=== PATIENT | female | born 1975 | race Caucasian/White ===

== ENCOUNTER 2017-02-17 11:20 | Emergency (ER) | payer OTHER, BC ==
[2017-02-17 11:29] VITALS: BP 141/91
--- NOTE | 2017-02-17 12:00 | XRAY Preliminary Report ---
Exam: XR Elbow 3 View RT IMPRESSION: Normal elbow radiography. [facility] SITE ID: [id number]
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
[2017-02-17] MEDS ORDERED: IBUPROFEN 600 MG TABLET PO STA (12:36)
[2017-02-17] MEDS ORDERED: IBUPROFEN 400 MG TABLET PO ONE (12:43)
[2017-02-17] MEDS ORDERED: IBUPROFEN 600 MG TABLET PO ONE (12:45)
== END 2017-02-17 12:53 | disposition home or self-care (01) ==
LOC: ED 11:20
DX: S46.911A Strain of unspecified muscle, fascia and tendon at shoulder and upper arm level, right arm, initial encounter (principal); V48.5XXA Car driver injured in noncollision transport accident in traffic accident, initial encounter; Y92.488 Other paved roadways as the place of occurrence of the external cause; F17.200 Nicotine dependence, unspecified, uncomplicated
CPT/HCPCS: 73080; 99283; A9270

== ENCOUNTER 2017-08-25 15:34 | Emergency (ER) | payer BC, OTHER ==
[2017-08-25 15:47] VITALS: BP 136/90
--- NOTE | 2017-08-25 16:10 | ED Physician Documentation ---
PD HPI LOWER EXT INJURY - Stated complaint Stated Complaint: L ANKLE INJ - Chief complaint Chief Complaint: Ext Problem - History obtained from History obtained from: Patient - History of Present Illness PD HPI LOW EXT INJURY LOCATION: Left, Ankle, Foot Type of injury: Fall, Twist Where injury occurred: Home Timing - onset: How many weeks ago (1) Timing - duration: Weeks (1) Timing - details: Abrupt onset, Still present Improved by: Rest, Immobilization Worsened by: Moving, Palpating Associated symptoms: Swelling, Discolored Contributing factors: No: Anticoagulated Similar symptoms before: Has not had sx before Recently seen: Not recently seen - Additional information Additional information: 41-year-old female went to get out of bed 1 week ago and her foot was asleep she stood up and the foot twisted and fell. She has pain to the lateral aspect of the left foot and ankle she has some ecchymosis associated with it and some swelling. Over the past week she has stayed off her foot as much as possible but she continues to have pain and she feels the pain is worsening. She is worried about fracture. Review of Systems Constitutional: denies: Fever Eyes: denies: Decreased vision Nose: denies: Congestion Throat: denies: Sore throat Respiratory: denies: Cough GI: denies: Vomiting Skin: denies: Rash Musculoskeletal: reports: Extremity pain, Joint pain, Extremity swelling, Joint swelling, Pain with weight bearing. denies: Neck pain, Back pain Neurologic: denies: Generalized weakness, Focal weakness, Numbness PD PAST MEDICAL HISTORY - Past Medical History Past Medical History: Yes Respiratory: Asthma Musculoskeletal: None - Past Surgical History Past Surgical History: Yes Ortho: ACL reconstruction - Present Medications Home Medications: Ambulatory Orders Medication Instructions Recorded Confirmed Albuterol Sulfate [Ventolin Hfa] 2 puffs IH Q4H PRN #1 hfa.aer.ad 03/06/1608/25 Ibuprofen [Motrin] 600 mg PO TID #20 tab 02/17/17 08/25/17 - Allergies Allergies/Adverse Reactions: Allergies Allergy/AdvReac Type Severity Reaction Status Date / Time aspirin Allergy Respiratory Verified 08/25/17 15:47 - Social History Does the pt smoke?: Yes Smoking Status: Current every day smoker Does the pt drink ETOH?: Yes ETOH Use: Wine, Beer Does the pt have substance abuse?: No - Immunizations Immunizations are current?: Yes - POLST Patient has POLST: No PD ED PE NORMAL - Vitals Vital signs reviewed: Yes (hypertensive) - General General: Alert and oriented X 3, No acute distress, Well developed/nourished - HEENT HEENT: Atraumatic, PERRL, EOMI - Respiratory Respiratory: No respiratory distress - Derm Derm: Normal color, Warm and dry, No rash - Extremities Extremities: No deformity, No edema, Other (Swelling and ecchymosis to the lateral aspect of the left foot. The ecchymosis is consistent with the dates given by the patient. The coloring is blackened consistent with 1 week from injury. There is tenderness over the proximal fifth metatarsal anteriorly and there is tenderness over the lateral mallous) - Neuro Neuro: Alert and oriented X 3, No motor deficit, No sensory deficit, Normal speech Eye Opening: Spontaneous Motor: Obeys Commands Verbal: Oriented GCS Score: 15 - Psych Psych: Normal mood, Normal affect Results - Vitals Vitals: Vital Signs - 24 hr 08/25/17 15:44 Temperature 36.6 C Heart Rate 66 Respiratory 16 Rate Blood Pressure 136/90 H O2 Saturation 98 Oxygen O2 Source Room air - Rads (name of study) foot right Radiology: Prelim report reviewed (Impression: Normal foot radiography.), EMP read indepedently, See rad report right ankle Radiology: Prelim report reviewed (Impression: Moderate lateral and anterior ankle soft tissue swelling. No evidence for acute fracture.), EMP read indepedently, See rad report Departure - Departure Disposition: Home, Self Care Clinical Impression: Ankle sprain Qualifiers: Encounter type: initial encounter Involved ligament of ankle: calcaneofibular ligament Laterality: left Qualified Code(s): S93.412A - Sprain of calcaneofibular ligament of left ankle, initial encounter Foot sprain Qualifiers: Encounter type: initial encounter Laterality: left Qualified Code(s): S93.602A - Unspecified sprain of left foot, initial encounter Condition: Stable Instructions: ED Sprain Foot, ED Sprain Ankle W X Ray Follow-Up: [facility] [Provider Group]
--- NOTE | 2017-08-25 16:37 | XRAY Preliminary Report ---
Exam: XR ANKLE 3 VIEW LT IMPRESSION: Moderate lateral and anterior ankle soft tissue swelling. No evidence for acute fracture. [facility] SITE ID: [id number]
--- NOTE | 2017-08-25 16:37 | XRAY Report ---
EXAM: LEFT ANKLE RADIOGRAPHY EXAM DATE: 08/25/2017 04:22 PM. CLINICAL HISTORY: Twist continued pain swelling one week out. COMPARISON: None. TECHNIQUE: 3 views. FINDINGS: Bones: Normal. No fractures or bone lesions. Joints: Ankle joint effusion. No subluxation. Soft Tissues: Moderate lateral and anterior ankle soft tissue swelling. IMPRESSION: Moderate lateral and anterior ankle soft tissue swelling. No evidence for acute fracture. [facility] Referring Provider Line: [phone] SITE ID: [id number]
--- NOTE | 2017-08-25 16:38 | XRAY Preliminary Report ---
Exam: XR FOOT 3 VIEW LT IMPRESSION: Normal foot radiography. [facility] SITE ID: [id number]
--- NOTE | 2017-08-25 16:38 | XRAY Report ---
EXAM: LEFT FOOT RADIOGRAPHY EXAM DATE: 08/25/2017 04:22 PM. CLINICAL HISTORY: Twist pain over proximal 5th one week old injury. COMPARISON: None. TECHNIQUE: 3 views. FINDINGS: Bones: Normal. No fractures or bone lesions. Joints: Normal. No subluxations. Soft Tissues: Normal. No soft tissue swelling. IMPRESSION: Normal foot radiography. [facility] Referring Provider Line: [phone] SITE ID: [id number]
== END 2017-08-25 17:06 | disposition home or self-care (01) ==
LOC: ED 15:34
DX: S93.412A Sprain of calcaneofibular ligament of left ankle, initial encounter (principal); S93.602A Unspecified sprain of left foot, initial encounter; X50.1XXA Overexertion from prolonged static or awkward postures, initial encounter; Y92.003 Bedroom of unspecified non-institutional (private) residence as the place of occurrence of the external cause
CPT/HCPCS: 99283

== ENCOUNTER 2017-11-25 13:45 | Emergency (ER) | payer BC, MEDICAID, OTHER ==
[2017-11-25] MEDS ORDERED: guaiFENesin/DEXTROMETHORPHAN 10 ML UDC PO STA (14:29)
[2017-11-25] MEDS ORDERED: BENZONATATE 100 MG CAPSULE PO STA (14:29)
--- NOTE | 2017-11-25 15:09 | ED Physician Documentation ---
History of Present Illness - Stated complaint Stated Complaint: CHEST CONGESTION - Chief complaint Chief Complaint: Resp - Additonal information Additional information: hx from pt 42 female to R with sweats congestion PND and now a bad productive cough worsening since last week no travel no leg swelling denies preg Review of Systems Constitutional: reports: Sweats. denies: Fever Nose: reports: Rhinorrhea / runny nose, Congestion Respiratory: reports: Dyspnea, Cough : denies: Now EGA Musculoskeletal: denies: Extremity swelling Immunocompromised: denies: Immunocompromised PD PAST MEDICAL HISTORY - Past Medical History Respiratory: Asthma Musculoskeletal: None - Past Surgical History Past Surgical History: Yes Ortho: ACL reconstruction - Present Medications Home Medications: Ambulatory Orders Medication Instructions Recorded Confirmed Albuterol Sulfate [Proair Hfa 2 puffs INH Q4H PRN #1 inhaler 11/25/17 Inhaler] Benzonatate [Tessalon] 100 mg PO TID PRN #20 capsule 11/25/17 Fluticasone [Flonase] 1 sprays ERIC BID PRN #1 bottle 11/25/17 guaiFENesin/DEXTROMETHORPHAN 10 ml PO Q6H PRN #120 ml 11/25/17 [Robitussin Dm] - Allergies Allergies/Adverse Reactions: Allergies Allergy/AdvReac Type Severity Reaction Status Date / Time aspirin Allergy Respiratory Verified 11/25/17 13:52 - Social History Does the pt smoke?: Yes Smoking Status: Current every day smoker Does the pt drink ETOH?: Yes Does the pt have substance abuse?: No - Immunizations Immunizations are current?: Yes - POLST Patient has POLST: No PD ED PE NORMAL - Vitals Vital signs reviewed: Yes - General General: Alert and oriented X 3 - HEENT HEENT: Ears normal, Moist mucous membranes. No: Pharynx benign (erythema from coughing) - Cardiac Cardiac: RRR - Respiratory Respiratory: No respiratory distress, Other (coarse wet cough) - Abdomen Abdomen: Soft - Derm Derm: Normal color - Extremities Extremities: No edema, No calf tenderness / cord - Neuro Neuro: Alert and oriented X 3 Results - Vitals Vitals: Vital Signs - 24 hr 11/25/17 13:48 Temperature 36 C L Heart Rate 68 Respiratory 20 Rate Blood Pressure 176/86 H O2 Saturation 98 Oxygen O2 Source Room air - Rads (name of study) CXR Radiology: See rad report (neg) Departure - Departure Disposition: 01 Home, Self Care Clinical Impression: Bronchitis Condition: Good Instructions: ED Upper Resp Infec No Abx Tx Prescriptions: Albuterol Sulfate [Proair Hfa Inhaler] 2 puffs INH Q4H PRN #1 inhaler PRN Reason: Shortness Of Air/Wheezing Benzonatate [Tessalon] 100 mg PO TID PRN #20 capsule PRN Reason: to ease cough Fluticasone [Flonase] 1 sprays ERIC BID PRN #1 bottle PRN Reason: seasonal allergies guaiFENesin/DEXTROMETHORPHAN [Robitussin Dm] 10 ml PO Q6H PRN #120 ml PRN Reason: Cough Comments: The xray was fine - no pneumonia So this is likely a viral infection - or possibly seasonal allergies I have prescribed medications to ease the cough and congestion Forms: Activity restrictions
--- NOTE | 2017-11-25 15:21 | XRAY Report ---
EXAM: CHEST RADIOGRAPHY EXAM DATE: 11/25/2017 03:06 PM. CLINICAL HISTORY: Cough for one week. COMPARISON: 03/06/2016. TECHNIQUE: 2 views. FINDINGS: Lungs/Pleura: No focal opacities evident. No pleural effusion. No pneumothorax. Normal volumes. Mediastinum: Heart and mediastinal contours are unremarkable. Other: Stable mild S-shaped scoliosis. IMPRESSION: Clear lungs. [facility] Referring Provider Line: [phone] SITE ID: [id number]
[2017-11-25 15:34] VITALS: BP 145/101
== END 2017-11-25 15:57 | disposition home or self-care (01) ==
LOC: ED 13:45
DX: J40 Bronchitis, not specified as acute or chronic (principal); F17.200 Nicotine dependence, unspecified, uncomplicated
CPT/HCPCS: 71046; 99283; A9270

== ENCOUNTER 2018-03-26 16:40 | Emergency (ER) | payer MEDICAID ==
[2018-03-26] MEDS ORDERED: DEXAMETHASONE 10 MG/ML VIAL PO STA (17:37)
[2018-03-26] MEDS ORDERED: KETOROLAC 60 MG/2 ML VIAL IM STA (17:37)
--- NOTE | 2018-03-26 18:19 | ED Physician Documentation ---
PD HPI BACK PAIN - Stated complaint Stated Complaint: BK PX - Chief complaint Chief Complaint: Back Pain - History obtained from History obtained from: Patient - History of Present Illness Timing - onset: How many days ago (3) Timing - details: Still present Location: Lower, Left Quality: Pain Associated symptoms: No: Fever, Incontinent of urine Worsened by: Movement, Lifting, Twisting Contributing factors: Lifting Similar symptoms before: Has not had sx before - Additional information Additional information: The patient is a 42-year-old female who presents with low back pain that started 3 days ago. She was moving a large television downstairs when she twisted her lower back causing a strain. The pain in her lower back has continued since that time. It radiates down her left leg. She has been using ice pack, Tylenol, and ibuprofen without relief. She denies fever, urinary incontinence, numbness or weakness. She denies history of similar symptoms in the past. Review of Systems Constitutional: denies: Fever Nose: denies: Congestion Respiratory: reports: Cough (Chronic smoker's cough.). denies: Dyspnea GI: denies: Abdominal Pain, Vomiting : denies: Dysuria, Incontinent Skin: denies: Rash Musculoskeletal: reports: Back pain. denies: Neck pain Neurologic: denies: Focal weakness, Numbness, Headache PD PAST MEDICAL HISTORY - Past Medical History Respiratory: Asthma Musculoskeletal: None - Past Surgical History Past Surgical History: Yes Ortho: ACL reconstruction - Present Medications Home Medications: Ambulatory Orders Medication Instructions Recorded Confirmed Albuterol Sulfate [Proair Hfa 2 puffs INH Q4H PRN #1 inhaler 11/25/17 Inhaler] Benzonatate [Tessalon] 100 mg PO TID PRN #20 capsule 11/25/17 Fluticasone [Flonase] 1 sprays ERIC BID PRN #1 bottle 11/25/17 guaiFENesin/DEXTROMETHORPHAN 10 ml PO Q6H PRN #120 ml 11/25/17 [Robitussin Dm] Cyclobenzaprine [Flexeril] 10 mg PO TID PRN #20 tablet 03/26/18 predniSONE [Prednisone] 30 mg PO DAILY #15 tablet 03/26/18 - Allergies Allergies/Adverse Reactions: Allergies Allergy/AdvReac Type Severity Reaction Status Date / Time aspirin Allergy Respiratory Verified 03/26/18 16:46 - Social History Does the pt smoke?: Yes Smoking Status: Current every day smoker Does the pt drink ETOH?: Yes Does the pt have substance abuse?: No - Immunizations Immunizations are current?: Yes - POLST Patient has POLST: No PD ED PE NORMAL - Vitals Vital signs reviewed: Yes (Initially hypertensive.) - General General: Alert and oriented X 3, Well developed/nourished, Other (Stigmata of chronic cigarette smoking.) - HEENT HEENT: Atraumatic - Neck Neck: No adenopathy, No JVD - Cardiac Cardiac: RRR - Respiratory Respiratory: Clear bilaterally - Abdomen Abdomen: Soft, Non tender - Back Back: No CVA TTP - Derm Derm: No rash - Extremities Extremities: No edema, No calf tenderness / cord - Neuro Neuro: Alert and oriented X 3, No motor deficit, Other (Decreased light touch sensation on the lateral aspect of the left foot. Deep tendon reflexes are 2+ and equal bilaterally at the patellar and Achilles tendons.) Results - Vitals Vitals: Vital Signs - 24 hr 03/26/18 16:42 Temperature 36.4 C L Heart Rate 86 Respiratory 16 Rate Blood Pressure 156/96 H O2 Saturation 100 Oxygen O2 Source Room air PD MEDICAL DECISION MAKING - ED course Complexity details: reviewed old records, re-evaluated patient, considered differential, d/w patient ED course: Patient's presentation is most consistent with lumbar strain with left-sided radiculopathy. Her exam is significant for slight decreased light touch sensation at the lateral aspect of the left foot. There is no motor deficit detected, and normal deep tendon reflexes. Her presentation does not suggest epidural abscess, cauda equina syndrome, or spinal stenosis. Treatment in the emergency department included administration of dexamethasone 10 mg orally and ketorolac 60 mg IM. She reports slight improvement of her discomfort with this treatment. She is being discharged with prescriptions for prednisone and for Flexeril. I discussed with her the expected course of illness, symptomatic treatment and outpatient follow-up, as well as potentially worrisome signs or symptoms that should prompt reevaluation in the department. I also discussed with her the importance of smoking cessation. - Sepsis Event Vital Signs: Vital Signs - 24 hr 03/26/18 16:42 Temperature 36.4 C L Heart Rate 86 Respiratory 16 Rate Blood Pressure 156/96 H O2 Saturation 100 Oxygen O2 Source Room air Departure - Departure Disposition: 01 Home, Self Care Clinical Impression: Back pain Qualifiers: Back pain location: low back pain Chronicity: acute Back pain laterality: left Sciatica presence: with sciatica Sciatica laterality: sciatica of left side Qualified Code(s): M54.42 - Lumbago with sciatica, left side Condition: Stable Instructions: ED Low Back Pain Injury Follow-Up: Sandrita Henley ARNP [Primary Care Provider] - Prescriptions: Cyclobenzaprine [Flexeril] 10 mg PO TID PRN #20 tablet PRN Reason: Spasms predniSONE [Prednisone] 30 mg PO DAILY #15 tablet Comments: Apply ice pack to your lower back intermittently for the next 3 days. Take prednisone daily for the next 5 days as prescribed. You can use Flexeril as prescribed if needed for muscle spasms. Take ibuprofen, up to 800 mg 3 times daily if needed for pain. Let pain be your guide to activity level. Follow up with your primary physician within 1-2 weeks. Call to schedule an appointment. Return to the emergency department if you develop increasing back pain, urinary incontinence, increasing numbness or weakness, or otherwise worsening symptoms.
[2018-03-26 18:39] VITALS: BP 146/82
== END 2018-03-26 18:37 | disposition home or self-care (01) ==
LOC: ED 16:40
DX: M54.42 Lumbago with sciatica, left side (principal); F17.200 Nicotine dependence, unspecified, uncomplicated; X50.0XXA Overexertion from strenuous movement or load, initial encounter; Y93.89 Activity, other specified
CPT/HCPCS: 99283

== ENCOUNTER 2018-07-09 16:04 | Outpatient (CLI) | payer MEDICAID | END 2018-07-09 16:05 | disposition short-term general hospital (02) | LOC: EMS 16:04 | PROVIDERS: ATTEND Surgery | DX: T07.XXXA Unspecified multiple injuries, initial encounter (principal); R07.1 Chest pain on breathing; V49.40XA Driver injured in collision with unspecified motor vehicles in traffic accident, initial encounter; Y92.413 State road as the place of occurrence of the external cause | CPT/HCPCS: A0425; A0427; A0999 ==

== ENCOUNTER 2018-08-18 10:20 | Outpatient (CLI) | payer MEDICAID | END 2018-08-18 10:21 | disposition home or self-care (01) | LOC: EMS 10:20 | PROVIDERS: ATTEND Surgery | DX: M79.604 Pain in right leg (principal); S82.92XD Unspecified fracture of left lower leg, subsequent encounter for closed fracture with routine healing; S82.91XD Unspecified fracture of right lower leg, subsequent encounter for closed fracture with routine healing; S42.302D Unspecified fracture of shaft of humerus, left arm, subsequent encounter for fracture with routine healing; S42.301D Unspecified fracture of shaft of humerus, right arm, subsequent encounter for fracture with routine healing; S22.49XD Multiple fractures of ribs, unspecified side, subsequent encounter for fracture with routine healing; V43.92XD Unspecified car occupant injured in collision with other type car in traffic accident, subsequent encounter | CPT/HCPCS: A0425; A0429; A0999 ==

== ENCOUNTER 2018-08-18 10:48 | Emergency (ER) | payer MEDICAID ==
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
--- NOTE | 2018-08-18 12:38 | XRAY Report ---
Reason: prior fracture repair; fell and hurts more Procedure Date: 08/18/2018 Accession Number: [id number] / [id number] Procedure: XR - Femur 2V RT CPT Code: FULL RESULT: EXAM: RIGHT FEMUR RADIOGRAPHY EXAM DATE: 08/18/2018 12:28 PM. CLINICAL HISTORY: Prior fracture repair. Fell and hurts more. COMPARISON: None. TECHNIQUE: 2 views. FINDINGS: In absence of prior comparison radiographs to evaluate for stability of hardware positioning the following observations are made. The femoral acetabular relationship is maintained. Within the limitations of the study there is no gross subluxation of the tibiofemoral articulation. The patient is status post ORIF of comminuted distal femoral fracture secured by lateral sideplate and multiple interlocking screws as well as reconstruction of the distal femoral condyle with multiple interfragmentary screws none of which protrude past the cortex in the region of the femoral condyle and none of which are overtly fractured. The patient is also status post ACL repair, incompletely evaluated. No new fracture. IMPRESSION: Status post ORIF of comminuted distal femoral metadiaphyseal fracture with reconstruction of the distal femoral condyle. Without comparison, no overt hardware failure. RADIA
[2018-08-18] MEDS ORDERED: oxyCODONE 5 MG TABLET PO STA ×2 (14:42→18:21)
[2018-08-18] MEDS ORDERED: traMADol 50 MG TABLET PO STA (16:32)
[2018-08-18] MEDS ORDERED: METHOCARBAMOL 500 MG TABLET PO STA (16:32)
[2018-08-18] MEDS ORDERED: ACETAMINOPHEN 325 MG TABLET PO STA (18:21)
[2018-08-18 18:30] VITALS: BP 136/83
== END 2018-08-18 18:38 | disposition home or self-care (01) ==
LOC: EDUNIT# → ED 10:48
DX: S79.921A Unspecified injury of right thigh, initial encounter (principal); S89.91XA Unspecified injury of right lower leg, initial encounter; W05.0XXA Fall from non-moving wheelchair, initial encounter; Y93.89 Activity, other specified; Y92.002 Bathroom of unspecified non-institutional (private) residence as the place of occurrence of the external cause; S72.401D Unspecified fracture of lower end of right femur, subsequent encounter for closed fracture with routine healing; V89.2XXD Person injured in unspecified motor-vehicle accident, traffic, subsequent encounter; Z98.890 Other specified postprocedural states; F17.200 Nicotine dependence, unspecified, uncomplicated
CPT/HCPCS: 73552; 99283; 99284; A9270

== ENCOUNTER 2018-11-29 12:19 | Emergency (ER) | payer MEDICAID ==
[2018-11-29 12:53] LABS: BASOPHILS % (AUTO) 0.8 %; EOSINOPHILS # (AUTO) 0.2 10^3/uL (0.0-0.7); EOSINOPHILS % (AUTO) 2.6 %; HGB - HEMOGLOBIN 12.7 g/dL (12.0-16.0); LYMPHOCYTES # (AUTO) 2.1 10^3/uL (1.5-3.5); LYMPHOCYTES % (AUTO) 34.5 %; MEAN CORPUSCULAR HEMOGLOBIN 28.2 pg (27.0-31.0); MEAN CORPUSCULAR HGB CONC 33.1 g/dL (32.0-36.0); MEAN PLATELET VOLUME 7.6 fL (7.9-10.8); MONOCYTES # (AUTO) 0.3 10^3/uL (0.0-1.0); MONOCYTES % (AUTO) 5.7 %; NEUTROPHILS # (AUTO) 3.4 10^3/uL (1.5-6.6); NEUTROPHILS % (AUTO) 56.4 %; PLT - PLATELET COUNT 361 10^3/uL (130-450); RED BLOOD COUNT 4.52 10^6/uL (4.20-5.40); RED CELL DISTRIBUTION WIDTH 16.2 % (12.0-15.0); WHITE BLOOD COUNT 5.9 x10^3/uL (4.8-10.8)
--- NOTE | 2018-11-29 12:54 | ED Physician Documentation ---
History of Present Illness - Stated complaint Stated Complaint: FEMALE - Chief complaint Chief Complaint: General - History obtained from History obtained from: Patient - History of Present Illness Timing: Today Pain level max: 0 Pain level now: 0 Improved by: nothing Worsened by: nothing - Additonal information Additional information: states vaginal bleeding today. Had an with misopristol 6 weeks ago, never followed up. States multiple clots today. Review of Systems Constitutional: denies: Fever, Chills GI: denies: Vomiting Skin: denies: Rash Musculoskeletal: denies: Neck pain, Back pain Neurologic: denies: Headache PD PAST MEDICAL HISTORY - Past Medical History Past Medical History: Yes Respiratory: Asthma Musculoskeletal: None - Past Surgical History Past Surgical History: Yes Ortho: ACL reconstruction - Present Medications Home Medications: Ambulatory Orders Medication Instructions Recorded Confirmed Albuterol Sulfate [Proair Hfa 2 puffs INH Q4H PRN #1 inhaler 11/25/17 08/18/18 Inhaler] Acetaminophen 2 tab PO Q6H 08/18/18 08/18/18 Aspirin 1 tab PO DAILY 08/18/18 08/18/18 Enoxaparin [Lovenox] 30 mg SUBQ BID 08/18/18 08/18/18 Gabapentin 3 tab PO TID 08/18/18 08/18/18 Lidocaine 1 patch SQ DAILY 08/18/18 08/18/18 Melatonin 1 tab PO BIDAC PRN 08/18/18 08/18/18 Methocarbamol 2 tab PO Q6H PRN 08/18/18 08/18/18 Multivitamin [Multivitamins] 1 tab PO DAILY 08/18/18 08/18/18 Omeprazole 20 mg PO DAILY 08/18/18 08/18/18 Ondansetron [Ondansetron Odt] 1 tab PO Q8H PRN 08/18/18 08/18/18 Polyethylene Glycol 3350 [Miralax] 17 gm PO DAILY PRN 08/18/18 08/18/18 Senna [Senokot] 2 tab PO BID PRN 08/18/18 08/18/18 oxyCODONE [Roxicodone] 10 mg PO Q4H PRN 08/18/18 08/18/18 traMADol [Ultram] 25 tab PO Q6H PRN 08/18/18 08/18/18 traZODone [Desyrel] 50 tab PO DAILY PRN 08/18/18 08/18/18 - Allergies Allergies/Adverse Reactions: Allergies Allergy/AdvReac Type Severity Reaction Status Date / Time No Known Drug Allergies Allergy Verified 11/29/18 12:29 - Social History Does the pt smoke?: Yes Smoking Status: Current every day smoker Does the pt drink ETOH?: Yes Does the pt have substance abuse?: No - Immunizations Immunizations are current?: Yes - POLST Patient has POLST: No PD ED PE NORMAL - Vitals Vital signs reviewed: Yes - General General: Alert and oriented X 3, No acute distress - HEENT HEENT: Moist mucous membranes - Neck Neck: Supple, no meningeal sign - Cardiac Cardiac: RRR, Strong equal pulses - Respiratory Respiratory: No respiratory distress, Clear bilaterally - Abdomen Abdomen: Soft, Non tender, Non distended - Female Female : Pt declined - Back Back: No CVA TTP, No spinal TTP - Derm Derm: Warm and dry - Extremities Extremities: No edema - Neuro Neuro: Alert and oriented X 3 - Psych Psych: Normal mood, Normal affect Results - Vitals Vitals: Vital Signs - 24 hr 11/29/18 11/29/18 11/29/18 12:26 13:40 15:28 Temperature 37.0 C Heart Rate 85 77 77 Respiratory 18 17 17 Rate Blood Pressure 136/79 H 140/78 H 128/71 O2 Saturation 100 11/29/18 16:36 Temperature Heart Rate 77 Respiratory 16 Rate Blood Pressure 120/70 O2 Saturation Oxygen O2 Source Room air - Labs Labs: Laboratory Tests 11/29/18 11/29/18 11/29/18 12:44 12:44 12:44 WBC 5.9 RBC 4.52 Hgb 12.7 Hct 38.4 MCV 85.0 MCH 28.2 MCHC 33.1 RDW 16.2 H Plt Count 361 MPV 7.6 L Neut # (Auto) 3.4 Lymph # (Auto) 2.1 [place] # (Auto) 0.3 Eos # (Auto) 0.2 Baso # (Auto) 0.0 Absolute Nucleated RBC 0.01 Nucleated RBC % 0.1 Sodium 138 Potassium 3.5 Chloride 103 Carbon Dioxide 25 Anion Gap 10.0 BUN 9 Creatinine 0.6 Estimated GFR (MDRD) 110 Glucose 95 Calcium 8.9 Total Bilirubin 0.5 AST 18 ALT 11 Alkaline Phosphatase 80 Total Protein 7.4 Albumin 3.8 Globulin 3.6 Albumin/Globulin Ratio 1.1 Lipase 22 HCG, Quant Blood Type O POSITIVE 11/29/18 12:44 WBC RBC Hgb Hct MCV MCH MCHC RDW Plt Count MPV Neut # (Auto) Lymph # (Auto) [place] # (Auto) Eos # (Auto) Baso # (Auto) Absolute Nucleated RBC Nucleated RBC % Sodium Potassium Chloride Carbon Dioxide Anion Gap BUN Creatinine Estimated GFR (MDRD) Glucose Calcium Total Bilirubin AST ALT Alkaline Phosphatase Total Protein Albumin Globulin Albumin/Globulin Ratio Lipase HCG, Quant 13.32 Blood Type - Rads (name of study) Pelvic ultrasound Radiology: Prelim report reviewed, EMP read contemporaneously, See rad report (No evidence of ovarian torsion. Abnormally thickened and heterogeneous appearance of the endometrium with increased vascularity. Findings may represent changes from proliferative phase of the menstrual cycle or less likely uterine adenomyosis or neoplastic process. Nonspecific small complex appearing fluid collection within the endometrium, which may represent an early gestational sac or endometrial cyst. Consider correlating with serial quantitative beta hCG with short-term follow-up imaging as indicated. ) PD MEDICAL DECISION MAKING - ED course Complexity details: reviewed results, re-evaluated patient, considered differential, d/w patient, d/w family ED course: 43-year-old female presents to the emergency department with heavy vaginal bleeding Several weeks after taking misoprostol for an elective . Her hCG is down to 14. Her ultrasound has a nonspecific complex fluid collection in the endometrium. She will correlate with serial hCGs. Discussed with Dr. Soto, OB on-call who recommends follow-up in the clinic. Bleeding decreased in the emergency department. Stable vital signs. Normal hemoglobin. Patient counseled regarding signs and symptoms for which I believe and urgent re-evaluation would be necessary. Patient with good understanding of and agreeme nt to plan and is comfortable going home at this time This document was made in part using voice recognition software. While efforts are made to proofread this document, sound alike and grammatical errors may occur. Departure - Departure Disposition: 01 Home, Self Care Clinical Impression: Dysfunctional uterine bleeding Menorrhagia Qualifiers: Menorrahagia type: with irregular cycle Qualified Code(s): N92.1 - Excessive and frequent menstruation with irregular cycle Condition: Good Instructions: ED Bleed Irregular Vaginal Follow-Up: [facility] [Provider Group] - Within 3 Days Comments: Follow-up with OB next in 3 days for repeat HCG. Return if you worsen. The bleeding should decrease over the next day or 2. Discharge Date/Time: 11/29/18 16:25
[2018-11-29 13:12] LABS: ALBUMIN 3.8 g/dL (3.2-5.5); ALBUMIN/GLOBULIN RATIO 1.1 (1.0-2.2); BILIRUBIN,TOTAL 0.5 mg/dL (0.2-1.0); CALCIUM 8.9 mg/dL (8.5-10.3); CREATININE 0.6 mg/dL (0.4-1.0); TOTAL PROTEIN 7.4 g/dL (6.7-8.2)
--- NOTE | 2018-11-29 15:38 | Ultrasound Report ---
Reason: pelvic pain, bleeding, s/p misopristol 6 weeks ago Procedure Date: 11/29/2018 Accession Number: [id number] / [id number] Procedure: US - Pelvic w/Transvag+Doppler Comp CPT Code: FULL RESULT: EXAM: PELVIC ULTRASOUND EXAM DATE: 11/29/2018 02:14 PM. CLINICAL HISTORY: Lower abdominal pain. Vaginal bleeding. COMPARISON: None available. TECHNIQUE: Realtime transabdominal pelvic scan performed to identify the uterus and adnexa and as an overview of other pelvic structures, followed by transvaginal scan to provide greater detail of the uterus and adnexa, with static image documentation. FINDINGS: Uterus: 10.1 x 5.8 x 5.6 cm, volume 171.6 cc. Anteverted position. Normal overall size and echotexture. Masses: None. Endometrium: 34.1 mm. The endometrium is abnormally thickened and heterogeneous with increased vascularity. There is a complex appearing focal fluid collection within the endometrium with a mean diameter of 7 mm. No definite embryonic pole or yolk sac visualized. Cervix: Unremarkable. Right Ovary: 3.3 x 1.4 x 1.5 cm, volume 3.6 cc. Normal echotexture and blood flow. Left Ovary: 3.5 x 2.3 x 3.1 cm, volume 13.1 cc. Simple appearing dominant follicle in the left ovary measuring 2.7 x 1.7 x 2.1 cm. Free Fluid: None. Other: None. IMPRESSION: No evidence of ovarian torsion. Abnormally thickened and heterogeneous appearance of the endometrium with increased vascularity. Findings may represent changes from proliferative phase of the menstrual cycle or less likely uterine adenomyosis or neoplastic process. Nonspecific small complex appearing fluid collection within the endometrium, which may represent an early gestational sac or endometrial cyst. Consider correlating with serial quantitative beta hCG with short-term follow-up imaging as indicated. RADIA
[2018-11-29 16:40] VITALS: BP 120/70
== END 2018-11-29 16:25 | disposition home or self-care (01) ==
LOC: ED 12:19
DX: N93.8 Other specified abnormal uterine and vaginal bleeding (principal); N92.1 Excessive and frequent menstruation with irregular cycle; F17.200 Nicotine dependence, unspecified, uncomplicated
CPT/HCPCS: 36415; 76830; 76856; 80053; 83690; 84702; 85025; 86900; 86901; 93975; 99283

== ENCOUNTER 2018-12-03 08:00 | Outpatient (CLI) | payer MEDICAID | END 2018-12-03 23:59 | disposition home or self-care (01) | LOC: LAB.R 08:00 | PROVIDERS: ATTEND Obstetrics & Gynecology | DX: O02.9 Abnormal product of conception, unspecified (principal); N93.8 Other specified abnormal uterine and vaginal bleeding; Z91.89 Other specified personal risk factors, not elsewhere classified | CPT/HCPCS: 36415; 84702; 87491; 87591 ==

== ENCOUNTER 2018-12-03 11:28 | Outpatient (CLI) | payer MEDICAID | END 2018-12-03 11:29 | disposition home or self-care (01) | LOC: LAB 11:28 | PROVIDERS: ATTEND Obstetrics & Gynecology | DX: O02.9 Abnormal product of conception, unspecified (principal); N93.8 Other specified abnormal uterine and vaginal bleeding | CPT/HCPCS: 36415; 84702 ==

== ENCOUNTER 2019-01-05 23:15 | Outpatient (CLI) | payer MEDICAID | END 2019-01-05 23:16 | disposition critical access hospital (66) | LOC: EMS 23:15 | PROVIDERS: ATTEND Surgery | DX: T40.2X2A Poisoning by other opioids, intentional self-harm, initial encounter (principal); T39.312A Poisoning by propionic acid derivatives, intentional self-harm, initial encounter; R53.83 Other fatigue | CPT/HCPCS: A0425; A0427; A0999 ==

== ENCOUNTER 2019-01-05 23:40 | Emergency (ER) | payer MEDICAID ==
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
[2019-01-06 00:18] LABS: BASOPHILS % (AUTO) 0.6 %; EOSINOPHILS # (AUTO) 0.3 10^3/uL (0.0-0.7); EOSINOPHILS % (AUTO) 3.3 %; HGB - HEMOGLOBIN 13.4 g/dL (12.0-16.0); LYMPHOCYTES # (AUTO) 2.9 10^3/uL (1.5-3.5); LYMPHOCYTES % (AUTO) 37.7 %; MEAN CORPUSCULAR HEMOGLOBIN 28.6 pg (27.0-31.0); MEAN CORPUSCULAR VOLUME 86.6 fL (81.0-99.0); MEAN PLATELET VOLUME 7.5 fL (7.9-10.8); MONOCYTES # (AUTO) 0.4 10^3/uL (0.0-1.0); MONOCYTES % (AUTO) 5.5 %; NEUTROPHILS # (AUTO) 4.1 10^3/uL (1.5-6.6); NEUTROPHILS % (AUTO) 52.9 %; PLT - PLATELET COUNT 282 10^3/uL (130-450); RED BLOOD COUNT 4.69 10^6/uL (4.20-5.40); RED CELL DISTRIBUTION WIDTH 16.8 % (12.0-15.0); WHITE BLOOD COUNT 7.8 x10^3/uL (4.8-10.8)
[2019-01-06 00:34] LABS: MUDS CUTOFF CONCENTRATIONS CUTOFF CONC BELOW:
[2019-01-06 00:36] LABS: BILIRUBIN,URINE NEGATIVE (NEGATIVE); GLUCOSE, URINE (UA) NEGATIVE (NEGATIVE); KETONES,URINE (UA) NEGATIVE (NEGATIVE); LEUKOCYTE ESTERASE, URINE NEGATIVE (NEGATIVE); NITRITE,URINE NEGATIVE (NEGATIVE); OCCULT BLOOD,URINE SMALL (NEGATIVE); PROTEIN,URINE NEGATIVE (NEGATIVE); UROBILINOGEN,URINE 0.2 (NORMAL) E.U./dL (NORMAL)
[2019-01-06 00:38] LABS: CLARITY,URINE CLEAR (CLEAR)
[2019-01-06 00:39] LABS: ACETAMINOPHEN < 10 ug/mL (10-30); ALBUMIN 4.6 g/dL (3.2-5.5); ALBUMIN/GLOBULIN RATIO 1.2 (1.0-2.2); ALKALINE PHOSPHATASE 70 IU/L (42-121); ALT ALANINE AMINOTRANSFERASE 10 IU/L (10-60); AST ASPARTATE AMINOTRANSFERASE 12 IU/L (10-42); BILIRUBIN,TOTAL 0.5 mg/dL (0.2-1.0); BUN - BLOOD UREA NITROGEN 6 mg/dL (6-20); CALCIUM 8.8 mg/dL (8.5-10.3); CARBON DIOXIDE - CO2 24 mmol/L (21-32); CHLORIDE 104 mmol/L (101-111); CREATININE 0.7 mg/dL (0.4-1.0); GFR - MDRD 92 (>89); GLUCOSE 97 mg/dL (70-100); LIPASE 30 U/L (22-51); SALICYLATE < 6.0 mg/dL; SODIUM 140 mmol/L (135-145); TOTAL PROTEIN 8.3 g/dL (6.7-8.2)
[2019-01-06 00:39] LABS: HCG UR QUAL NEGATIVE
[2019-01-06 00:42] LABS: BACTERIA,URINE Rare /HPF (None Seen); RBC,URINE 0-5 /HPF (0-5); SQUAMOUS EPITHELIAL CELL,UR FEW Squamous (<= Few)
[2019-01-06 00:46] LABS: AMPHETAMINE SCREEN,URINE NEGATIVE (NEGATIVE); BENZODIAZEPINES SCREEN, URINE NEGATIVE (NEGATIVE); COCAINE SCREEN URINE NEGATIVE (NEGATIVE); METHADONE SCREEN, URINE NEGATIVE (NEGATIVE); METHAMPHETAMINES SCREEN, URINE NEGATIVE (NEGATIVE); OPIATE SCREEN, URINE NEGATIVE (NEGATIVE); OXYCODONE SCREEN, URINE POSITIVE (NEGATIVE); PROPOXYPHENE SCREEN, URINE NEGATIVE (NEGATIVE); TRICYCLIC ANTIDEPRESSANT,URINE NEGATIVE (NEGATIVE)
--- NOTE | 2019-01-06 10:37 | ED Physician Documentation ---
ED Addendum - Addendum Addendum: 01/06/19 10:36 The patient is more lucid this morning. She denies suicidal ideation this morning. We did have social work talk with the patient as well as her significant other. The feeling is that she is low risk of self-harm. She contracts for safety. The patient seems stable and safe for discharge.
[2019-01-06 11:10] VITALS: BP 118/78
== END 2019-01-06 11:24 | disposition home or self-care (01) ==
LOC: EDUNIT# → ED 23:40
DX: T40.2X2A Poisoning by other opioids, intentional self-harm, initial encounter (principal); T39.312A Poisoning by propionic acid derivatives, intentional self-harm, initial encounter; F10.920 Alcohol use, unspecified with intoxication, uncomplicated; Y90.7 Blood alcohol level of 200-239 mg/100 ml; Y92.009 Unspecified place in unspecified non-institutional (private) residence as the place of occurrence of the external cause; F32.9 Major depressive disorder, single episode, unspecified; F17.200 Nicotine dependence, unspecified, uncomplicated
CPT/HCPCS: 36415; 80053; 80306; 80307; 80320; 80329; 81001; 81003; 81025; 83690; 84443; 85025; 87086; 93005; 99284

== ENCOUNTER 2019-06-04 20:32 | Outpatient (CLI) | payer MEDICAID, OTHER | END 2019-06-04 20:33 | disposition critical access hospital (66) | LOC: EMS 20:32 | PROVIDERS: ATTEND Surgery | DX: M54.2 Cervicalgia (principal); Y04.2XXA Assault by strike against or bumped into by another person, initial encounter | CPT/HCPCS: A0425; A0429; A0999 ==

== ENCOUNTER 2019-06-04 20:52 | Inpatient (IN) | payer MEDICAID, OTHER ==
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
[2019-06-04] MEDS ORDERED: ONDANSETRON ODT 4 MG TABLET TL STA (21:22)
[2019-06-04 21:40] LABS: BASOPHILS # (AUTO) 0.1 10^3/uL (0.0-0.1); BASOPHILS % (AUTO) 0.7 %; EOSINOPHILS # (AUTO) 0.2 10^3/uL (0.0-0.7); EOSINOPHILS % (AUTO) 1.9 %; LYMPHOCYTES # (AUTO) 1.5 10^3/uL (1.5-3.5); LYMPHOCYTES % (AUTO) 15.2 %; MEAN CORPUSCULAR HEMOGLOBIN 30.4 pg (27.0-31.0); MEAN CORPUSCULAR HGB CONC 33.2 g/dL (32.0-36.0); MEAN CORPUSCULAR VOLUME 91.5 fL (81.0-99.0); MEAN PLATELET VOLUME 9.7 fL (7.9-10.8); MONOCYTES # (AUTO) 0.3 10^3/uL (0.0-1.0); MONOCYTES % (AUTO) 3.4 %; NEUTROPHILS # (AUTO) 7.9 10^3/uL (1.5-6.6); NEUTROPHILS % (AUTO) 78.4 %; PLT - PLATELET COUNT 285 10^3/uL (130-450); RED BLOOD COUNT 4.94 10^6/uL (4.20-5.40); RED CELL DISTRIBUTION WIDTH 15.8 % (12.0-15.0); WHITE BLOOD COUNT 10.1 x10^3/uL (4.8-10.8)
[2019-06-04 21:44] LABS: INR 1.3 (0.8-1.2); PT - PROTHROMBIN TIME 14.9 secs (9.9-12.6)
[2019-06-04 22:01] LABS: ALBUMIN 4.5 g/dL (3.2-5.5); ALBUMIN/GLOBULIN RATIO 1.4 (1.0-2.2); BILIRUBIN,TOTAL 0.6 mg/dL (0.2-1.0); CALCIUM 8.7 mg/dL (8.5-10.3); TOTAL PROTEIN 7.8 g/dL (6.7-8.2)
[2019-06-04 22:02] LABS: HCG,QUALITATIVE BLOOD NEGATIVE
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
[2019-06-04 22:10] LABS: CREATININE 0.7 mg/dL (0.4-1.0)
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
[2019-06-04] MEDS ORDERED: FAMOTIDINE 20 MG/2 ML VIAL IVP STA (22:14)
[2019-06-04] MEDS ORDERED: MAG HYDROX/AL HYDROX/SIMETH 30 ML UDC PO STA (22:51)
[2019-06-04] MEDS ORDERED: FAMOTIDINE 20 MG TABLET PO STA (22:51)
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
[2019-06-05 00:28] LABS: INR 1.3 (0.8-1.2); PT - PROTHROMBIN TIME 14.8 secs (9.9-12.6)
[2019-06-05 00:43] LABS: ALBUMIN 4.1 g/dL (3.2-5.5); ALBUMIN/GLOBULIN RATIO 1.2 (1.0-2.2); BILIRUBIN,TOTAL 0.3 mg/dL (0.2-1.0); CALCIUM 8.6 mg/dL (8.5-10.3); CREATININE 0.7 mg/dL (0.4-1.0); TOTAL PROTEIN 7.4 g/dL (6.7-8.2)
[2019-06-05] MEDS ORDERED: DEXTROSE 5% IV STA (00:49)
[2019-06-05] MEDS ORDERED: ACETYLCYSTEINE IV STA (00:49)
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
[2019-06-05] MEDS ORDERED: ACETYLCYSTEINE IV ONE ×3 (01:20→06:35)
[2019-06-05] MEDS ORDERED: DEXTROSE 5% IV ONE ×3 (01:20→06:35)
[2019-06-05] MEDS: ONDANSETRON 4 MG/2 ML VIAL IVP PRN (03:13)
[2019-06-05] MEDS: SODIUM CHLORIDE FLUSH 0.9% 10 ML SYRINGE IVP SCH ×3 (03:14→16:41)
[2019-06-05] MEDS: SODIUM CHLORIDE 0.9% 1,000 ML IV SCH ×2 (04:51→14:50)
[2019-06-05] MEDS: SODIUM CHLORIDE FLUSH 0.9% 10 ML SYRINGE IVP PRN ×3 (04:52→06:32)
[2019-06-05 05:29] LABS: BASOPHILS % (AUTO) 0.5 %; EOSINOPHILS # (AUTO) 0.1 10^3/uL (0.0-0.7); EOSINOPHILS % (AUTO) 1.6 %; LYMPHOCYTES # (AUTO) 1.2 10^3/uL (1.5-3.5); LYMPHOCYTES % (AUTO) 18.1 %; MEAN CORPUSCULAR HEMOGLOBIN 29.3 pg (27.0-31.0); MEAN CORPUSCULAR HGB CONC 32.4 g/dL (32.0-36.0); MEAN CORPUSCULAR VOLUME 90.3 fL (81.0-99.0); MEAN PLATELET VOLUME 9.7 fL (7.9-10.8); MONOCYTES # (AUTO) 0.2 10^3/uL (0.0-1.0); MONOCYTES % (AUTO) 2.4 %; NEUTROPHILS # (AUTO) 4.9 10^3/uL (1.5-6.6); NEUTROPHILS % (AUTO) 76.9 %; PLT - PLATELET COUNT 234 10^3/uL (130-450); RED BLOOD COUNT 4.44 10^6/uL (4.20-5.40); RED CELL DISTRIBUTION WIDTH 15.6 % (12.0-15.0); WHITE BLOOD COUNT 6.4 x10^3/uL (4.8-10.8)
[2019-06-05 06:03] LABS: ALBUMIN 3.7 g/dL (3.2-5.5); ALBUMIN/GLOBULIN RATIO 1.2 (1.0-2.2); BILIRUBIN,TOTAL 0.9 mg/dL (0.2-1.0); CALCIUM 8.2 mg/dL (8.5-10.3); CREATININE 0.5 mg/dL (0.4-1.0); TOTAL PROTEIN 6.8 g/dL (6.7-8.2)
[2019-06-05] MEDS: PANTOPRAZOLE 40 MG VIAL IVP SCH (06:31)
[2019-06-05 12:47] LABS: INR 1.4 (0.8-1.2)
[2019-06-05 18:03] LABS: ALBUMIN/GLOBULIN RATIO 1.2 (1.0-2.2); BILIRUBIN,TOTAL 1.2 mg/dL (0.2-1.0); CALCIUM 8.3 mg/dL (8.5-10.3); CREATININE 0.4 mg/dL (0.4-1.0); TOTAL PROTEIN 7.3 g/dL (6.7-8.2)
[2019-06-05] MEDS ORDERED: POTASSIUM CHLORIDE 20 MEQ TABLET PO ONE (22:09)
[2019-06-05 22:55] LABS: INR 1.4 (0.8-1.2); PT - PROTHROMBIN TIME 15.4 secs (9.9-12.6)
[2019-06-05 23:03] LABS: ALBUMIN 3.5 g/dL (3.2-5.5); ALBUMIN/GLOBULIN RATIO 1.1 (1.0-2.2); ALKALINE PHOSPHATASE 50 IU/L (42-121); ALT ALANINE AMINOTRANSFERASE 1179 IU/L (10-60); AST ASPARTATE AMINOTRANSFERASE 2414 IU/L (10-42); BUN - BLOOD UREA NITROGEN < 5 mg/dL (6-20); CALCIUM 8.2 mg/dL (8.5-10.3); CARBON DIOXIDE - CO2 21 mmol/L (21-32); CHLORIDE 105 mmol/L (101-111); CREATININE 0.5 mg/dL (0.4-1.0); GFR - MDRD 136 (>89); GLUCOSE 117 mg/dL (70-100); SODIUM 135 mmol/L (135-145); TOTAL PROTEIN 6.6 g/dL (6.7-8.2)
[2019-06-05 23:35] LABS: BASOPHILS % (AUTO) 0.7 %; EOSINOPHILS # (AUTO) 0.1 10^3/uL (0.0-0.7); EOSINOPHILS % (AUTO) 2.1 %; HGB - HEMOGLOBIN 12.6 g/dL (12.0-16.0); LYMPHOCYTES # (AUTO) 1.5 10^3/uL (1.5-3.5); LYMPHOCYTES % (AUTO) 24.1 %; MEAN CORPUSCULAR HEMOGLOBIN 30.1 pg (27.0-31.0); MEAN CORPUSCULAR HGB CONC 33.7 g/dL (32.0-36.0); MEAN CORPUSCULAR VOLUME 89.5 fL (81.0-99.0); MEAN PLATELET VOLUME 9.5 fL (7.9-10.8); MONOCYTES # (AUTO) 0.3 10^3/uL (0.0-1.0); MONOCYTES % (AUTO) 4.4 %; NEUTROPHILS # (AUTO) 4.2 10^3/uL (1.5-6.6); NEUTROPHILS % (AUTO) 68.4 %; PLT - PLATELET COUNT 197 10^3/uL (130-450); RED BLOOD COUNT 4.18 10^6/uL (4.20-5.40); RED CELL DISTRIBUTION WIDTH 15.2 % (12.0-15.0); WHITE BLOOD COUNT 6.1 x10^3/uL (4.8-10.8)
[2019-06-06] MEDS ORDERED: DEXTROSE 5% IV ONE ×2 (00:15→20:50)
[2019-06-06] MEDS ORDERED: ACETYLCYSTEINE IV ONE ×2 (00:15→20:50)
[2019-06-06] MEDS: SODIUM CHLORIDE 0.9% 1,000 ML IV SCH ×3 (00:37→19:41)
[2019-06-06] MEDS: SODIUM CHLORIDE FLUSH 0.9% 10 ML SYRINGE IVP SCH ×3 (00:38→19:35)
[2019-06-06] MEDS: ONDANSETRON 4 MG/2 ML VIAL IVP PRN (00:49)
[2019-06-06] MEDS: SODIUM CHLORIDE FLUSH 0.9% 10 ML SYRINGE IVP PRN ×3 (00:49→06:14)
[2019-06-06 05:21] LABS: BASOPHILS % (AUTO) 0.6 %; EOSINOPHILS # (AUTO) 0.2 10^3/uL (0.0-0.7); EOSINOPHILS % (AUTO) 4.2 %; HGB - HEMOGLOBIN 12.9 g/dL (12.0-16.0); LYMPHOCYTES # (AUTO) 1.3 10^3/uL (1.5-3.5); LYMPHOCYTES % (AUTO) 24.4 %; MEAN CORPUSCULAR HEMOGLOBIN 29.4 pg (27.0-31.0); MEAN CORPUSCULAR HGB CONC 32.6 g/dL (32.0-36.0); MEAN CORPUSCULAR VOLUME 90.2 fL (81.0-99.0); MEAN PLATELET VOLUME 10.1 fL (7.9-10.8); MONOCYTES # (AUTO) 0.3 10^3/uL (0.0-1.0); MONOCYTES % (AUTO) 4.8 %; NEUTROPHILS # (AUTO) 3.6 10^3/uL (1.5-6.6); NEUTROPHILS % (AUTO) 65.6 %; PLT - PLATELET COUNT 200 10^3/uL (130-450); RED BLOOD COUNT 4.39 10^6/uL (4.20-5.40); RED CELL DISTRIBUTION WIDTH 15.2 % (12.0-15.0); WHITE BLOOD COUNT 5.5 x10^3/uL (4.8-10.8)
[2019-06-06 05:26] LABS: INR 1.4 (0.8-1.2); PT - PROTHROMBIN TIME 15.7 secs (9.9-12.6)
[2019-06-06] MEDS ORDERED: POTASSIUM CHLORIDE 20 MEQ TABLET PO ONE (05:34)
[2019-06-06 05:37] LABS: ALBUMIN 3.6 g/dL (3.2-5.5); ALBUMIN/GLOBULIN RATIO 1.2 (1.0-2.2); ALKALINE PHOSPHATASE 48 IU/L (42-121); ALT ALANINE AMINOTRANSFERASE 1009 IU/L (10-60); AST ASPARTATE AMINOTRANSFERASE 1546 IU/L (10-42); BILIRUBIN,TOTAL 1.1 mg/dL (0.2-1.0); BUN - BLOOD UREA NITROGEN < 5 mg/dL (6-20); CALCIUM 8.2 mg/dL (8.5-10.3); CARBON DIOXIDE - CO2 23 mmol/L (21-32); CHLORIDE 108 mmol/L (101-111); CREATININE 0.4 mg/dL (0.4-1.0); GFR - MDRD 176 (>89); GLUCOSE 128 mg/dL (70-100); SODIUM 138 mmol/L (135-145); TOTAL PROTEIN 6.5 g/dL (6.7-8.2)
[2019-06-06] MEDS: PANTOPRAZOLE 40 MG VIAL IVP SCH (06:12)
--- NOTE | 2019-06-06 08:44 | XRAY Report ---
Reason: fever, vomiting concern for aspiration Procedure Date: 06/06/2019 Accession Number: [id number] / [id number] Procedure: XR - Chest 1 View X-Ray CPT Code: 22567 Final Report FULL RESULT: EXAM: CHEST RADIOGRAPHY EXAM DATE: 06/06/2019 08:25 AM. CLINICAL HISTORY: Fever and vomiting. COMPARISON: THORACIC SPINE 2 VIEW 06/04/2019 11:04 PM. TECHNIQUE: 1 view. FINDINGS: Lungs/Pleura: No focal opacities evident. No pleural effusion. No pneumothorax. Mediastinum: Within exam limitations, the cardiomediastinal contour is normal. Other: Internal fixation hardware partially visualized in the left humeral head. IMPRESSION: No cardiopulmonary abnormality demonstrated. RADIA
[2019-06-06 15:10] LABS: BILIRUBIN,URINE NEGATIVE (NEGATIVE); GLUCOSE, URINE (UA) NEGATIVE (NEGATIVE); KETONES,URINE (UA) NEGATIVE (NEGATIVE); LEUKOCYTE ESTERASE, URINE TRACE (NEGATIVE); NITRITE,URINE NEGATIVE (NEGATIVE); OCCULT BLOOD,URINE NEGATIVE (NEGATIVE); PROTEIN,URINE NEGATIVE (NEGATIVE); UROBILINOGEN,URINE 1 (NORMAL) E.U./dL (NORMAL)
[2019-06-06 15:13] LABS: CLARITY,URINE CLEAR (CLEAR)
[2019-06-06 15:21] LABS: RBC,URINE 0-5 /HPF (0-5)
[2019-06-06 15:22] LABS: BACTERIA,URINE Rare /HPF (None Seen); SQUAMOUS EPITHELIAL CELL,UR FEW Squamous (<= Few)
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
[2019-06-06 21:42] LABS: ALBUMIN 3.5 g/dL (3.2-5.5); ALBUMIN/GLOBULIN RATIO 1.1 (1.0-2.2); ALKALINE PHOSPHATASE 51 IU/L (42-121); ALT ALANINE AMINOTRANSFERASE 734 IU/L (10-60); AST ASPARTATE AMINOTRANSFERASE 407 IU/L (10-42); BILIRUBIN,TOTAL 0.7 mg/dL (0.2-1.0); BUN - BLOOD UREA NITROGEN < 5 mg/dL (6-20); CALCIUM 8.5 mg/dL (8.5-10.3); CARBON DIOXIDE - CO2 23 mmol/L (21-32); CHLORIDE 107 mmol/L (101-111); CREATININE 0.4 mg/dL (0.4-1.0); GFR - MDRD 176 (>89); GLUCOSE 122 mg/dL (70-100); SODIUM 138 mmol/L (135-145); TOTAL PROTEIN 6.7 g/dL (6.7-8.2)
[2019-06-07] MEDS: SODIUM CHLORIDE FLUSH 0.9% 10 ML SYRINGE IVP SCH ×3 (00:51→16:53)
[2019-06-07 05:14] LABS: BASOPHILS % (AUTO) 0.4 %; EOSINOPHILS # (AUTO) 0.5 10^3/uL (0.0-0.7); HGB - HEMOGLOBIN 12.1 g/dL (12.0-16.0); LYMPHOCYTES # (AUTO) 1.7 10^3/uL (1.5-3.5); LYMPHOCYTES % (AUTO) 29.9 %; MEAN CORPUSCULAR VOLUME 90.8 fL (81.0-99.0); MONOCYTES # (AUTO) 0.3 10^3/uL (0.0-1.0); MONOCYTES % (AUTO) 5.9 %; NEUTROPHILS # (AUTO) 3.1 10^3/uL (1.5-6.6); NEUTROPHILS % (AUTO) 55.4 %; PLT - PLATELET COUNT 199 10^3/uL (130-450); RED BLOOD COUNT 4.04 10^6/uL (4.20-5.40); RED CELL DISTRIBUTION WIDTH 15.1 % (12.0-15.0); WHITE BLOOD COUNT 5.6 x10^3/uL (4.8-10.8)
[2019-06-07 05:23] LABS: INR 1.4 (0.8-1.2); PT - PROTHROMBIN TIME 15.8 secs (9.9-12.6)
[2019-06-07 05:36] LABS: ALBUMIN 3.4 g/dL (3.2-5.5); ALBUMIN/GLOBULIN RATIO 1.1 (1.0-2.2); ALKALINE PHOSPHATASE 44 IU/L (42-121); ALT ALANINE AMINOTRANSFERASE 603 IU/L (10-60); AST ASPARTATE AMINOTRANSFERASE 221 IU/L (10-42); BILIRUBIN,TOTAL 0.7 mg/dL (0.2-1.0); BUN - BLOOD UREA NITROGEN < 5 mg/dL (6-20); CALCIUM 8.4 mg/dL (8.5-10.3); CARBON DIOXIDE - CO2 21 mmol/L (21-32); CHLORIDE 111 mmol/L (101-111); CREATININE 0.4 mg/dL (0.4-1.0); GFR - MDRD 176 (>89); GLUCOSE 116 mg/dL (70-100); SODIUM 138 mmol/L (135-145); TOTAL PROTEIN 6.5 g/dL (6.7-8.2)
[2019-06-07] MEDS: SODIUM CHLORIDE 0.9% 1,000 ML IV SCH ×2 (05:55→19:29)
[2019-06-07] MEDS: PANTOPRAZOLE 40 MG VIAL IVP SCH (05:56)
[2019-06-07] MEDS: SODIUM CHLORIDE FLUSH 0.9% 10 ML SYRINGE IVP PRN (05:56)
[2019-06-07] MEDS: POLYETHYLENE GLYCOL 3350 17 GM PACKET PO SCH (10:27)
[2019-06-07] MEDS: DOCUSATE SODIUM 250 MG CAPSULE PO SCH (10:27)
[2019-06-07] MEDS: SENNA 8.6 MG TABLET PO SCH (10:28)
[2019-06-07] MEDS ORDERED: SODIUM CHLORIDE FLUSH 0.9% 10 ML SYRINGE ONE (11:05)
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
[2019-06-07 17:17] LABS: ALBUMIN 3.8 g/dL (3.2-5.5); ALBUMIN/GLOBULIN RATIO 1.1 (1.0-2.2); BILIRUBIN,TOTAL 0.8 mg/dL (0.2-1.0); CALCIUM 8.8 mg/dL (8.5-10.3); CREATININE 0.5 mg/dL (0.4-1.0); TOTAL PROTEIN 7.3 g/dL (6.7-8.2)
[2019-06-07] MEDS ORDERED: ONDANSETRON 4 MG/2 ML VIAL IVP PRN (17:43)
[2019-06-07] MEDS: POTASSIUM CHLORIDE 20 MEQ TABLET PO SCH (20:08)
[2019-06-08] MEDS: SODIUM CHLORIDE 0.9% 1,000 ML IV SCH ×2 (04:13→06:11)
[2019-06-08] MEDS: SODIUM CHLORIDE FLUSH 0.9% 10 ML SYRINGE IVP SCH ×2 (04:16→09:13)
[2019-06-08 04:51] LABS: BASOPHILS # (AUTO) 0.1 10^3/uL (0.0-0.1); BASOPHILS % (AUTO) 0.9 %; EOSINOPHILS # (AUTO) 0.4 10^3/uL (0.0-0.7); EOSINOPHILS % (AUTO) 7.2 %; HGB - HEMOGLOBIN 12.1 g/dL (12.0-16.0); LYMPHOCYTES # (AUTO) 1.7 10^3/uL (1.5-3.5); LYMPHOCYTES % (AUTO) 31.1 %; MEAN CORPUSCULAR HEMOGLOBIN 29.2 pg (27.0-31.0); MEAN CORPUSCULAR HGB CONC 32.2 g/dL (32.0-36.0); MEAN CORPUSCULAR VOLUME 90.8 fL (81.0-99.0); MEAN PLATELET VOLUME 10.4 fL (7.9-10.8); MONOCYTES # (AUTO) 0.4 10^3/uL (0.0-1.0); MONOCYTES % (AUTO) 6.5 %; NEUTROPHILS % (AUTO) 53.9 %; PLT - PLATELET COUNT 215 10^3/uL (130-450); RED BLOOD COUNT 4.14 10^6/uL (4.20-5.40); RED CELL DISTRIBUTION WIDTH 15.2 % (12.0-15.0); WHITE BLOOD COUNT 5.6 x10^3/uL (4.8-10.8)
[2019-06-08 04:58] LABS: INR 1.2 (0.8-1.2); PT - PROTHROMBIN TIME 13.6 secs (9.9-12.6)
[2019-06-08 05:11] LABS: ALBUMIN 3.5 g/dL (3.2-5.5); ALBUMIN/GLOBULIN RATIO 1.1 (1.0-2.2); BILIRUBIN,TOTAL 0.5 mg/dL (0.2-1.0); CALCIUM 9.1 mg/dL (8.5-10.3); CREATININE 0.5 mg/dL (0.4-1.0); TOTAL PROTEIN 6.7 g/dL (6.7-8.2)
[2019-06-08 07:32] VITALS: BP 143/95
--- NOTE | 2019-06-08 08:32 | Discharge Plan ---
Discharge Plan Problem Reviewed?: Yes Disposition: Home, Self Care Condition: Stable Diet: Regular Activity Restrictions: Activity as Tolerated Shower Restrictions: No Assistance Devices: Other (as before admission) Weight Bearing: Full Weight Health Concerns: 1) Tylenol overdose After excess tylenol your liver had tylenol toxicity After a protocol specific for tylenol overdose, your liver is progressively improving with liver enzymes slowly normalizing (not at baseline yet) (AST/ALT 71/428 at discharge) NO Tylenol/Acetaminophen containing products! Look at labels carefully if you take any over the counter products to be sure there is NO acetaminophen You have follow up with your PCP on Thursday at 0920 am. (Labs should be rechecked to ensure liver enzymes continue to resolve ( 2) Suicide attempt In the hospital you were monitored one on one and had a mental health evaluation You deny that you have ongoing thoughts of self harm and also note that you have a good support system with Efrain and your PCP On discharge you are having your regular discussion with your [facility] counselor, and Myles is available for your home assistance After a phone consult with Marianne([facility]) today, -plan is you will call her once you arrive home and she will check in later today with you as well - you will speak with her weekly (rather than every 2 weeks) - You have appt with Marianne 06/09 at 12 pm 3) Depression You note that your mood on discharge despite holding duloxetine since admission is stable It was discussed that continuing the duloxetine is important for mood maintenance You wished to discuss with your Primary care Provider before resuming (you have appt with your PCP on Wednesday 06/13 920am Wellbutrin which you were on for smoking cessation was discontinued if there were any contribution to thoughts of self harm Plan of Treatment: Completed mucomyst protocol for toxic level of tylenol No Smoking: If you smoke, Please STOP! Call for help. Follow-up with: Sandrita Henley ARNP [Primary Care Provider] -
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
[2019-06-08] MEDS: POLYETHYLENE GLYCOL 3350 17 GM PACKET PO SCH (09:13)
[2019-06-08] MEDS: DOCUSATE SODIUM 250 MG CAPSULE PO SCH (09:13)
[2019-06-08] MEDS: SENNA 8.6 MG TABLET PO SCH (09:13)
[2019-06-08] MEDS: POTASSIUM CHLORIDE 20 MEQ TABLET PO SCH (09:13)
== END 2019-06-08 11:29 | disposition home or self-care (01) | DRG 918 ==
LOC: EDUNIT# → ED 20:52 → MS3 06-05 01:00 → EEVIPCON 06-05 01:00 → MS3 06-05 01:25
PROVIDERS: ADMIT Internal Medicine; ATTEND Nurse Practitioner
DX: T39.1X2A Poisoning by 4-Aminophenol derivatives, intentional self-harm, initial encounter (principal); S50.12XA Contusion of left forearm, initial encounter; S40.022A Contusion of left upper arm, initial encounter; S40.021A Contusion of right upper arm, initial encounter; W18.39XA Other fall on same level, initial encounter; Y04.2XXA Assault by strike against or bumped into by another person, initial encounter; K71.9 Toxic liver disease, unspecified; R11.2 Nausea with vomiting, unspecified; M54.6 Pain in thoracic spine; F32.9 Major depressive disorder, single episode, unspecified; S52.022D Displaced fracture of olecranon process without intraarticular extension of left ulna, subsequent encounter for closed fracture with routine healing; J45.909 Unspecified asthma, uncomplicated; R50.9 Fever, unspecified; M54.2 Cervicalgia; R51 Headache; Z87.891 Personal history of nicotine dependence; Z79.899 Other long term (current) drug therapy; Z87.81 Personal history of (healed) traumatic fracture
CPT/HCPCS: 36415; 70450; 71045; 72070; 72125; 73080; 80053; 80307; 80320; 80329; 81001; 82140; 83605; 83690; 83735; 84703; 85025; 85610; 87040; 87086; 99284; 99285; A9270; J0132; J3490; Q0162

== ENCOUNTER 2019-12-13 11:23 | Emergency (ER) | payer MEDICAID, OTHER ==
[2019-12-13 11:56] LABS: RAPID STREP SCREEN Negative (Negative)
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
[2019-12-13] MEDS ORDERED: IBUPROFEN 600 MG TABLET PO STA (12:44)
[2019-12-13] MEDS ORDERED: HYDROcod/ACETAM 5/325 MG TABLET PO STA (12:44)
[2019-12-13] MEDS ORDERED: cephALEXin 250 MG CAPSULE PO STA (12:44)
[2019-12-13 12:54] VITALS: BP 144/81
== END 2019-12-13 12:54 | disposition home or self-care (01) ==
LOC: ED 11:23
DX: H66.001 Acute suppurative otitis media without spontaneous rupture of ear drum, right ear (principal); Z87.891 Personal history of nicotine dependence
CPT/HCPCS: 87070; 87430; 99283; A9270

== ENCOUNTER 2020-04-30 16:50 | Emergency (ER) | payer MEDICAID ==
[2020-04-30] MEDS ORDERED: LIDOCAINE 1% 2 ML VIAL MC ONE (17:15)
[2020-04-30] MEDS ORDERED: cefTRIAXone 1 GM VIAL IM STA (17:15)
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
[2020-04-30 17:49] VITALS: BP 142/87
== END 2020-04-30 17:48 | disposition home or self-care (01) ==
LOC: ED 16:50
DX: K02.9 Dental caries, unspecified (principal); Z87.891 Personal history of nicotine dependence
CPT/HCPCS: 96372; 99283; 99284

== ENCOUNTER 2020-08-15 09:35 | Outpatient (CLI) | payer MEDICAID ==
[2020-08-15] MEDS ORDERED: BUFFERED LIDOCAINE 10 ML SYRINGE ONE (10:06)
[2020-08-15] MEDS ORDERED: TRIAMCINOLONE 40 MG/ML VIAL ONE (10:07)
[2020-08-15] MEDS ORDERED: ROPIVACAINE 0.5% PF 20 ML AMPULE ONE (10:08)
--- NOTE | 2020-08-15 11:18 | XRAY Report ---
PROCEDURE: Inj/Aspiration Major Joint INDICATIONS: POST TRAUMATIC OSTEOARTHRITIS CONTRAST: CONTRAST: omnipaque FLUORO TIME: FLUORO TIME: 19 sec and NUMBER IMAGES: 2 TECHNIQUE: The indications, alternatives, benefits, risks, and complications of the procedure were explained to the patient. Written informed consent was obtained and placed in the chart. The patient was placed in an appropriate position on the fluoroscopy table, and a site was chosen for percutaneous access un sandra fluoroscopic guidance. Local anesthetic was administered using a 1% lidocaine solution. A hypod ermic or spinal needle was then used to access the symptomatic joint. Intra-articular location of th e needle tip was confirmed by injecting a small amount of contrast, followed by steroid administratio n. The needle was then withdrawn, and a bandage applied to the puncture site. FINDINGS: Joint injected: Left hip joint Medications injected: 4 mL of 40 mg/mL Kenalog and 0.5% Ropivacaine mixture. Complications: None. IMPRESSION: Successful fluoroscopically guided administration of steroid and anaesthetic solution into the left h ip joint. Reviewed by: Allegra Guerrero MD on 08/15/2020 11:17 AM PST Approved by: Allegra Guerrero MD on 08/15/2020 11:17 AM PST Station ID: [id number]
[2020-08-15] MEDS ORDERED: iohexoL-240 10 ML VIAL IVP ONE (11:27)
[2020-08-15] MEDS ORDERED: BUFFERED LIDOCAINE 10 ML SYRINGE IU ONE (11:29)
[2020-08-15] MEDS ORDERED: ROPIVACAINE 0.5% PF 20 ML AMPULE EP ONE (11:31)
[2020-08-15] MEDS ORDERED: TRIAMCINOLONE 40 MG/ML VIAL IM ONE (11:32)
== END 2020-08-15 09:36 | disposition home or self-care (01) ==
LOC: DI 09:35
PROVIDERS: ATTEND Registered Nurse
DX: M16.52 Unilateral post-traumatic osteoarthritis, left hip (principal)
CPT/HCPCS: 20610; Q9966

== ENCOUNTER 2021-01-14 20:24 | Emergency (ER) | payer MEDICAID ==
[2021-01-14 20:36] VITALS: BP 143/94
[2021-01-14] MEDS ORDERED: AMOX/CLAV 875 MG/125 MG TABLET PO STA (21:16)
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
== END 2021-01-14 21:26 | disposition home or self-care (01) ==
LOC: ED 20:24
DX: K08.89 Other specified disorders of teeth and supporting structures (principal); F17.200 Nicotine dependence, unspecified, uncomplicated
CPT/HCPCS: 99282; 99284; A9270

== ENCOUNTER 2021-01-22 13:58 | Emergency (ER) | payer MEDICAID ==
[2021-01-22] MEDS ORDERED: ACETAMINOPHEN 325 MG TABLET PO STA (14:29)
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
[2021-01-22 16:28] VITALS: BP 133/71
== END 2021-01-22 16:28 | disposition home or self-care (01) ==
LOC: ED 13:58
DX: K12.1 Other forms of stomatitis (principal); F17.200 Nicotine dependence, unspecified, uncomplicated
CPT/HCPCS: 99282; A9270

== ENCOUNTER 2021-04-15 11:37 | Emergency (ER) | payer MEDICARE, MEDICAID ==
--- NOTE | 2021-04-15 12:30 | ED Physician Documentation ---
History of Present Illness - Stated complaint Stated Complaint: LT ARM INJ - Chief complaint Chief Complaint: Trauma Ext - History obtained from History obtained from: Patient - History of Present Illness Timing: Today Pain level max: 7 Pain level now: 5 - Additonal information Additional information: Patient is a 45-year-old female with a history of a left elbow fracture 2 years ago, multiple pins, screws and hardware in the joint. She states today she was cleaning when she felt a sharp pain in the posterior aspect of her elbow. Has limited range of motion of the elbow now. Worse with movement, better with rest. No numbness or tingling. Does not recall any other trauma. 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 : None HEENT: None Psych: Depression Musculoskeletal: Osteoarthritis Derm: None - Past Surgical History Past Surgical History: Yes Ortho: ACL reconstruction, Other - Present Medications Home Medications: Ambulatory Orders Medication Instructions Recorded Confirmed Fluoxetine HCl 40 mg ORAL DAILY 04/30/20 04/15/21 Omeprazole 40 mg PO DAILY 01/14/21 04/15/21 Gabapentin [Neurontin] 300 mg PO HS 04/15/21 04/15/21 HYDROcod/ACETAM 5/325 [Hyden 5/325] 1 - 2 ea PO Q6H PRN #12 tablet 04/15/21 - Allergies Allergies/Adverse Reactions: Allergies Allergy/AdvReac Type Severity Reaction Status Date / Time No Known Drug Allergies Allergy Verified 04/15/21 11:41 - Social History Does the pt smoke?: Yes Smoking Status: Current every day smoker Does the pt drink ETOH?: No Does the pt have substance abuse?: No - Immunizations Immunizations are current?: Yes - POLST Patient has POLST: No POLST Status: Full Code PD ED PE NORMAL - Vitals Vital signs reviewed: Yes - General General: Alert and oriented X 3, No acute distress - HEENT HEENT: Moist mucous membranes - Neck Neck: Supple, no meningeal sign - Derm Derm: Warm and dry - Extremities Extremities: Other (Mild tenderness to palpation over the olecranon of the left elbow. Has flexion to about 80 degrees before there is pain in the posterior aspect of the elbow. Extension to about 160 degrees. No pain with pronation and supination. No swelling. Neurovascular intact) - Neuro Neuro: Alert and oriented X 3 - Psych Psych: Normal mood, Normal affect Results - Vitals Vitals: Vital Signs - 24 hr 04/15/21 04/15/21 11:42 14:19 Temperature 36.4 C L 37.2 C Heart Rate 63 58 L Respiratory 18 12 Rate Blood Pressure 127/72 119/70 O2 Saturation 100 99 Oxygen O2 Source Room air - Rads (name of study) Left elbow x-ray Radiology: Final report received, EMP read contemporaneously, See rad report PD MEDICAL DECISION MAKING - ED course Complexity details: reviewed results, re-evaluated patient, considered differential, d/w patient ED course: No acute findings on x-ray. Likely soft tissue injury. No evidence of tendon rupture. Placed in a sling for comfort. We will continue gentle stretching at home. She has occupational therapy later this week. She will follow up with her doctor for further care. Patient counseled regarding signs and symptoms for which I believe and urgent re-evaluation would be necessary. Patient with good understanding of and agreement to plan and is comfortable going home at this time I am prescribing a short course of short-acting opioid pain medication for this patient. I have reviewed the patients PAN GREASER and no concerning findings were noted. I have discussed that the opioids are for short term therapy only, and will not be refilled from the ED. This document was made in part using voice recognition software. While efforts are made to proofread this document, sound alike and grammatical errors may occur. Departure - Departure Disposition: 01 Home, Self Care Clinical Impression: Elbow pain Qualifiers: Laterality: left Qualified Code(s): M25.522 - Pain in left elbow Condition: Good Instructions: ED Acute Pain [facility] Follow-Up: Sandrita Henley ARNP [Primary Care Provider] - Within 1 week Prescriptions: HYDROcod/ACETAM 5/325 [Hyden 5/325] 1 - 2 ea PO Q6H PRN #12 tablet PRN Reason: Pain Comments: You can wear the sling as needed for comfort. Return if you worsen. Continue to gently stretch the elbow. Do not stay in the sling longer than 2-3 days. Your xray does not show any acute abnormality. I am prescribing a short course of narcotic pain medication for you. These are potentially dangerous and addictive medications that should be used carefully. These medications may constipate you. Take an ucir-mnz-vlbdofa stool softener (docusate) twice daily with plenty of water while taking these medications. If you go 24 hours without a bowel movement, take kfyg-lwa-kjqicev miralax, per package instructions. Do not drink or drive while taking these medications. If you received narcotic or sedating medications while in the emergency department, do not drive for 24 hours. Store this medication in a safe, secure place and out of reach of children. It is a violation of federal law to give or sell this medication to another person or to use in a manner other than prescribed. The ED will not refill narcotic prescriptions, including prescriptions lost or stolen. To dispose of unwanted medications: 1. [facility] at [address] [facility] in [place] has a medication drop box. They accept prescription medications (in pill form) Thursday through Thursday 9:00 a.m. to 5:00 p.m. 2. The [facility] [employer] accepts prescription medications (in pill form only) for disposal year round. Call for more information. 3. Contact the [facility] for the next [facility] sponsored prescription drug collection event. , [phone], or [phone];
--- NOTE | 2021-04-15 12:45 | XRAY Report ---
PROCEDURE: Elbow 3 View LT INDICATIONS: L elbow pain, prior fracture TECHNIQUE: 3 views of the elbow were acquired. COMPARISON: 06/04/2019 FINDINGS: Bones: Extensive surgical hardware involving the shafts of the humerus, radius, and ulna. Surgical h ardware in these locations is intact with no evidence of hardware failure or loosening. Interval bossmna brenda of a olecranon plate at the elbow. Healed residual olecranon fracture. 3 separate screw fragments remain in the ulna at the elbow after removal of the olecranon plate. No evidence of acute fractures or dislocations. No significant degenerative change. No suspicious bony lesions. Soft tissues: No elbow joint effusion. No suspicious soft tissue calcifications. IMPRESSION: Surgical hardware from extensive previous surgeries. No acute fracture or dislocation. No evidence of significant arthritic change at the elbow. Reviewed by: Calvin Clark MD on 04/15/2021 12:44 PM PDT Approved by: Calvin Clark MD on 04/15/2021 12:44 PM PDT Station ID: [id number]
[2021-04-15] MEDS ORDERED: HYDROcod/ACETAM 5/325 MG TABLET PO STA (13:34)
[2021-04-15 14:19] VITALS: BP 119/70
== END 2021-04-15 15:15 | disposition home or self-care (01) ==
LOC: ED 11:37
DX: M25.522 Pain in left elbow (principal); F17.200 Nicotine dependence, unspecified, uncomplicated
CPT/HCPCS: 73080; 99283; A9270

== ENCOUNTER 2021-04-25 16:27 | Outpatient (CLI) | payer MEDICARE, MEDICAID | END 2021-04-25 16:28 | disposition home or self-care (01) | LOC: COV 16:27 | PROVIDERS: ATTEND Family Medicine | DX: R05 Cough (principal); M79.10 Myalgia, unspecified site; R51.9 Headache, unspecified; R53.83 Other fatigue; R68.83 Chills (without fever); R07.0 Pain in throat; Z20.822 Contact with and (suspected) exposure to COVID-19 ==

== ENCOUNTER 2021-10-14 08:59 | Outpatient (CLI) | payer MEDICARE, MEDICAID ==
--- NOTE | 2021-10-15 10:23 | Mammography Report ---
BILATERAL DIGITAL SCREENING MAMMOGRAM 3D/2D: 10/14/2021 CLINICAL: Routine screening. Baseline Exam. Family history of breast cancer. No prior exams were available for comparison. There are scattered fibroglandular elements in both br easts. There is a benign lymph node in the left breast. No significant masses, calcifications, or other findings are seen in either breast. IMPRESSION: BENIGN There is no mammographic evidence of malignancy. A 1 year screening mammogram is recommended. This exam was interpreted at Station ID: [id number]. NOTE: For mammograms, a report in lay terms will be sent to the patient. Approximately 15% of breast malignancies will not be visualized mammographically. In the management of a palpable breast mass, a negative mammogram must not discourage biopsy of a clinically suspicious lesion. Electronically Signed By: Clement [email or web address]:10/14/2021 11:00:14 ACR BI-RADS Category 2: Benign Finding(s) 3342F PARENCHYMAL PATTERN: (A) - The breast(s) demonstrate(s) scattered fibroglandular densities. BI-RADS CATEGORY: (2) - 2 RECOMMENDATION: (ANNUAL) - Recommend routine annual screening mammography. [id number] 1 year screening LATERALITY: (B)
== END 2021-10-14 09:00 | disposition home or self-care (01) ==
LOC: DI.S 08:59
PROVIDERS: ATTEND Obstetrics & Gynecology
DX: Z12.31 Encounter for screening mammogram for malignant neoplasm of breast (principal); Z80.3 Family history of malignant neoplasm of breast

== ENCOUNTER 2021-11-11 15:15 | Emergency (ER) | payer MEDICARE, MEDICAID ==
[2021-11-11 15:23] VITALS: BP 148/82
--- OUTSIDE RECORDS SUMMARY | 2021-11-11 15:35 | EXTERNAL MEDICAL SUMMARY RPT | Continuity of Care Document ---
:1975 Author Organization [facility] Address [address] [place] [address] Phone Allergies No information. Encounters No information. Medications No information. 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
--- NOTE | 2021-11-11 16:23 | ED Physician Documentation ---
History of Present Illness - Stated complaint Stated Complaint: LEFT LEG PX - Chief complaint Chief Complaint: Ext Problem - History obtained from History obtained from: Patient - History of Present Illness Pain level max: 4 Pain level now: 3 - Additonal information Additional information: 46-year-old female status post left sided total hip replacement 3 weeks ago. Developed a left calf pain yesterday. PCP sent her to the emergency department for potential DVT today.No shortness of breath. No chest pain. Worse with walking, better with rest. 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 : None HEENT: None Psych: Depression Musculoskeletal: Osteoarthritis Derm: None - Past Surgical History Past Surgical History: Yes Ortho: ACL reconstruction, Other - Present Medications Home Medications: Ambulatory Orders Medication Instructions Recorded Confirmed Fluoxetine HCl 40 mg ORAL DAILY 04/30/20 04/15/21 Omeprazole 40 mg PO DAILY 01/14/21 04/15/21 Gabapentin [Neurontin] 300 mg PO HS 04/15/21 04/15/21 HYDROcod/ACETAM 5/325 [[place]and 5/325] 1 - 2 ea PO Q6H PRN #12 tablet 04/15/21 - Allergies Allergies/Adverse Reactions: Allergies Allergy/AdvReac Type Severity Reaction Status Date / Time No Known Drug Allergies Allergy Verified 11/11/21 15:23 - Social History Does the pt smoke?: Yes Smoking Status: Current every day smoker Does the pt drink ETOH?: No Does the pt have substance abuse?: No - Immunizations Immunizations are current?: Yes - POLST Patient has POLST: No POLST Status: Full Code PD ED PE NORMAL - Vitals Vital signs reviewed: Yes - General General: Alert and oriented X 3, No acute distress, Well developed/nourished - HEENT HEENT: PERRL, Moist mucous membranes - Neck Neck: Supple, no meningeal sign - Cardiac Cardiac: RRR, Strong equal pulses - Respiratory Respiratory: No respiratory distress, Clear bilaterally - Derm Derm: Warm and dry - Extremities Extremities: No edema, Other (Mild posterior calf tenderness. No swelling. No skin changes. Neurovascular intact) - Neuro Neuro: Alert and oriented X 3 - Psych Psych: Normal mood, Normal affect Results - Vitals Vitals: Vital Signs - 24 hr 11/11/21 15:19 Temperature 36.7 C Heart Rate 77 Respiratory 16 Rate Blood Pressure 148/82 H O2 Saturation 100 Oxygen O2 Source Room air - Rads (name of study) Duplex ultrasound left lower extremity Radiology: Final report received, EMP read contemporaneously, See rad report (No DVT) PD MEDICAL DECISION MAKING - ED course Complexity details: reviewed results, re-evaluated patient, considered differential, d/w patient ED course: No acute findings on ultrasound. Likely that her calf is sore from recently starting physical therapy after her hip replacement. No evidence of infection. Patient counseled This document was made in part using voice recognition software. While efforts are made to proofread this document, sound alike and grammatical errors may occur. Departure - Departure Disposition: 01 Home, Self Care Clinical Impression: Leg pain Qualifiers: Laterality: left Qualified Code(s): M79.605 - Pain in left leg Condition: Good Instructions: ED Post Op Pain Follow-Up: Sandrita Henley ARNP [Primary Care Provider] - Within 1 week Comments: Your ultrasound is negative today. There is no DVT on your ultrasound. Please return if you worsen. Discharge Date/Time: 11/11/21 16:29
--- NOTE | 2021-11-11 16:30 | Ultrasound Report ---
PROCEDURE: Duplex Ext Veins Left INDICATIONS: L calf pain. TECHNIQUE: Real-time imaging, as well as color and pulse Doppler interrogation, were performed of the lower extr emity deep veins from the inguinal ligament to the popliteal fossa. COMPARISON: None. FINDINGS: The deep veins are normally compressible, and free of intraluminal thrombus. Color and pu lse Doppler demonstrate normal phasic intraluminal flow. There is normal augmentation response to di stal compression maneuver. IMPRESSION: No evidence of deep vein thrombosis involving the left lower extremity. Reviewed by: Anita Tobin MD, PhD on 11/11/2021 4:29 PM PDT Approved by: Anita Tobin MD, PhD on 11/11/2021 4:29 PM PDT Station ID: [id number]
== END 2021-11-11 16:29 | disposition home or self-care (01) ==
LOC: ED 15:15
DX: M79.662 Pain in left lower leg (principal); F17.200 Nicotine dependence, unspecified, uncomplicated
CPT/HCPCS: 99282; 99284

== ENCOUNTER 2022-11-15 09:32 | Emergency (ER) | payer MEDICARE, MEDICAID ==
[2022-11-15] MEDS ORDERED: LORazepam 1 MG TABLET PO STA (09:59)
[2022-11-15] MEDS ORDERED: ONDANSETRON ODT 4 MG TABLET TL STA (09:59)
--- NOTE | 2022-11-15 10:09 | ED Physician Documentation ---
History of Present Illness - Stated complaint Stated Complaint: N/V ETOH - Chief complaint Chief Complaint: General - History obtained from History obtained from: Patient, Family - Additonal information Additional information: Patient is a 47-year-old with a history of alcohol abuse presenting for evaluation of feeling withdrawal symptoms for the past 3 hours. She last had alcohol at 4 AM. She reports having nausea and vomiting and feeling shaky since 7 AM with 3 episodes of emesis. She reports yesterday drinking 3 bottles of wine and a few beers. She states that this is a normal amount for her.She reports recent stressors in her life with her significant other being out of work for several months and helping with her granddaughter. She says that things are getting better as her significant other has found a job. She is wanting help for her alcohol use. She is wanting to go to detox. She was last in a detox facility last summer and states she was able to maintain sobriety for approximately 1 month. She has a history of depression. She currently denies feeling suicidal or having suicidal thoughts. She has not recently tried to harm herself.She denies other drug use. Review of Systems Constitutional: denies: Fever Cardiac: denies: Chest pain / pressure Respiratory: denies: Dyspnea GI: reports: Nausea, Vomiting. 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 : None HEENT: None Psych: Depression Musculoskeletal: Osteoarthritis Derm: None - Past Surgical History Past Surgical History: Yes Ortho: ACL reconstruction, Other - Present Medications Home Medications: Ambulatory Orders Medication Instructions Recorded Confirmed Fluoxetine HCl 40 mg ORAL DAILY 04/30/20 04/15/21 Omeprazole 40 mg PO DAILY 01/14/21 04/15/21 Gabapentin [Neurontin] 300 mg PO HS 04/15/21 04/15/21 HYDROcod/ACETAM 5/325 [[place] 5/325] 1 - 2 ea PO Q6H PRN #12 tablet 04/15/21 Lactobacillus Combination No.4 1 each PO DAILY #14 cap 02/08/22 [Probiotic] Vancomycin [Vancocin] 125 mg PO Q6HR #40 cap 02/08/22 LORazepam [Ativan] 1 mg PO Q4HR PRN #12 tablet 11/15/22 Ondansetron Odt [Zofran] 4 mg TL Q6H PRN #10 tablet 11/15/22 - Allergies Allergies/Adverse Reactions: Allergies Allergy/AdvReac Type Severity Reaction Status Date / Time No Known Drug Allergies Allergy Verified 11/15/22 09:47 - Social History Does the pt smoke?: Yes Smoking Status: Current every day smoker Does the pt drink ETOH?: No Does the pt have substance abuse?: No - Immunizations Immunizations are current?: Yes - POLST Patient has POLST: No POLST Status: Full Code PD ED PE NORMAL - General General: Alert and oriented X 3, No acute distress, Well developed/nourished - HEENT HEENT: Atraumatic Results - Vitals Vitals: Vital Signs - 24 hr 11/15/22 11/15/22 11/15/22 09:43 10:45 12:08 Temperature 36.6 C Heart Rate 107 H 90 93 Respiratory 17 16 18 Rate Blood Pressure 150/96 H 145/89 H 145/111 H O2 Saturation 97 98 97 11/15/22 12:25 Temperature Heart Rate 106 H Respiratory 18 Rate Blood Pressure 143/89 H O2 Saturation 100 Oxygen O2 Source Room air - Labs Labs: Laboratory Tests 11/15/22 11/15/22 11/15/22 10:08 10:08 10:45 WBC 7.5 RBC 5.24 Hgb 13.7 Hct 42.1 MCV 80.3 L MCH 26.1 L MCHC 32.5 RDW 21.2 H Plt Count 355 MPV 9.1 Neut # (Auto) 5.0 Lymph # (Auto) 2.0 [place] # (Auto) 0.3 Eos # (Auto) 0.1 Baso # (Auto) 0.1 Absolute Nucleated RBC 0.00 Nucleated RBC % 0.0 Manual Slide Review Indicated Platelet Estimate NORMAL (130-450,000) Platelet Morphology NORMAL APPEARANCE RBC Morph Micro Appear 2+ ANISOCYTOSIS Sodium 138 Potassium 3.1 L Chloride 104 Carbon Dioxide 22 Anion Gap 12.0 BUN 8 Creatinine 0.6 Estimated GFR (MDRD) 108 Glucose 122 H Calcium 8.1 L Total Bilirubin 0.4 AST 34 ALT 35 Alkaline Phosphatase 57 Total Protein 8.2 Albumin 4.5 Globulin 3.7 Albumin/Globulin Ratio 1.2 Lipase 35 Urine Color YELLOW Urine Clarity HAZY Urine pH 6.5 Ur Specific [place] 1.025 Urine Protein 100 H Urine Glucose (UA) NEGATIVE Urine Ketones TRACE Urine Occult Blood SMALL H Urine Nitrite NEGATIVE Urine Bilirubin NEGATIVE Urine Urobilinogen 0.2 (NORMAL) Ur Leukocyte Esterase TRACE H Urine RBC 6-10 H Urine WBC 6-10 H Ur Squamous Epith Cells MANY Squamous H Urine Bacteria Few Urine Mucus Moderate Strands Ur Microscopic Review INDICATED Urine Culture Comments NOT INDICATED Urine HCG, Qual NEGATIVE Ethyl Alcohol 228.1 PD Medical Decision Making - ED course Complexity details: reviewed results, re-evaluated patient, d/w patient ED course: Patient is a 47-year-old female presenting for evaluation of alcohol withdrawal symptoms. She is wanting to quit. She reports having nausea and vomiting. Her CIWA is lower. She is feeling better after oral Ativan and Zofran.CBC and chemistries were reviewed. Potassium was slightly low at 3.2 and replaced p.o. which patient tolerated well.Although her alcohol level is elevated here she is clinically sober and that she is speaking clearly and able to ambulate steadily.She was given resources for Detox facilities. [facility] is currently full but she has also reached out to other facilities.She feels comfortable managing her symptoms at home. She denies a history of DTs or alcohol withdrawal seizures.She is not suicidal.She was counseled to not take Ativan if she plans on drinking. She was also counseled on concerning symptoms to return for. Departure - Departure Disposition: 01 Home, Self Care Clinical Impression: Alcohol withdrawal, Hypokalemia Condition: Stable Instructions: ED Withdrawal Alcohol Prescriptions: LORazepam [Ativan] 1 mg PO Q4HR PRN #12 tablet PRN Reason: Alcohol Withdrawal Ondansetron Odt [Zofran] 4 mg TL Q6H PRN #10 tablet PRN Reason: Nausea / Vomiting Comments: Please continue to reach out to detox facilities in order to get help for your alcohol withdrawal. I have sent a few prescriptions to help you with your withdrawal symptoms including antinausea medicine called Zofran and Ativan. Please do not consume alcohol if you are using the Ativan as this can be dangerous and cause you to be overly sedated. If you develop any worsening symptoms please return to the ER. Your prescriptions were sent to [facility] in [place]. [facility] [address] [place] [address] Main The [facility] offers a monitored and safe setting for individuals withdrawing from alcohol and drugs, and counseling for individuals experiencing a mental health crisis. All services are provided in a 10-bed facility where intensive medical monitoring is required along with stabilization services. The goal of these services is to assess a clients mental health and substance use disorder related needs, and assist them in accessing the services they need to recover. Discharge Date/Time: 11/15/22 12:25
[2022-11-15 10:14] LABS: BASOPHILS # (AUTO) 0.1 10^3/uL (0.0-0.1); BASOPHILS % (AUTO) 0.8 %; EOSINOPHILS # (AUTO) 0.1 10^3/uL (0.0-0.7); EOSINOPHILS % (AUTO) 1.7 %; HCT - HEMATOCRIT 42.1 % (37.0-47.0); HGB - HEMOGLOBIN 13.7 g/dL (12.0-16.0); LYMPHOCYTES % (AUTO) 26.8 %; MEAN CORPUSCULAR HEMOGLOBIN 26.1 pg (27.0-31.0); MEAN CORPUSCULAR HGB CONC 32.5 g/dL (32.0-36.0); MEAN CORPUSCULAR VOLUME 80.3 fL (81.0-99.0); MEAN PLATELET VOLUME 9.1 fL (7.9-10.8); MONOCYTES # (AUTO) 0.3 10^3/uL (0.0-1.0); MONOCYTES % (AUTO) 4.3 %; NEUTROPHILS % (AUTO) 66.1 %; PLT - PLATELET COUNT 355 10^3/uL (130-450); RED BLOOD COUNT 5.24 10^6/uL (4.20-5.40); RED CELL DISTRIBUTION WIDTH 21.2 % (12.0-15.0); WHITE BLOOD COUNT 7.5 x10^3/uL (4.8-10.8)
[2022-11-15 10:19] LABS: SLIDE REVIEW? Indicated
[2022-11-15 10:26] LABS: ALBUMIN 4.5 g/dL (3.2-5.5); ALBUMIN/GLOBULIN RATIO 1.2 (1.0-2.2); BILIRUBIN,TOTAL 0.4 mg/dL (0.2-1.0); CALCIUM 8.1 mg/dL (8.5-10.3); CREATININE 0.6 mg/dL (0.4-1.0); ETOH - ETHANOL 228.1 mg/dL; POTASSIUM 3.1 mmol/L (3.5-5.0); TOTAL PROTEIN 8.2 g/dL (6.7-8.2)
[2022-11-15 10:28] LABS: PLATELET ESTIMATE, MANUAL NORMAL (130-450,000) (NORMAL); PLATELET MORPHOLOGY NORMAL APPEARANCE (NORMAL); RBC MORPHOLOGY (MULTIPLE) 2+ ANISOCYTOSIS (NORMAL)
[2022-11-15] MEDS ORDERED: POTASSIUM CHLORIDE 20 MEQ TABLET PO STA (10:31)
[2022-11-15 10:53] LABS: BILIRUBIN,URINE NEGATIVE (NEGATIVE); GLUCOSE, URINE (UA) NEGATIVE (NEGATIVE); KETONES,URINE (UA) TRACE mg/dL (NEGATIVE); LEUKOCYTE ESTERASE, URINE TRACE (NEGATIVE); NITRITE,URINE NEGATIVE (NEGATIVE); OCCULT BLOOD,URINE SMALL (NEGATIVE); PH,URINE 6.5 PH (5.0-7.5); PROTEIN,URINE 100 mg/dL (NEGATIVE); UROBILINOGEN,URINE 0.2 (NORMAL) E.U./dL (NORMAL)
[2022-11-15 11:07] LABS: BACTERIA,URINE Few /HPF (None Seen); CLARITY,URINE HAZY (CLEAR); HCG UR QUAL NEGATIVE; SQUAMOUS EPITHELIAL CELL,UR MANY Squamous (<= Few)
[2022-11-15 11:08] LABS: MUCUS,URINE Moderate Strands
[2022-11-15 12:25] VITALS: BP 143/89
== END 2022-11-15 12:25 | disposition home or self-care (01) ==
LOC: ED 09:32
DX: F10.239 Alcohol dependence with withdrawal, unspecified (principal); Y90.7 Blood alcohol level of 200-239 mg/100 ml; E87.6 Hypokalemia; F17.210 Nicotine dependence, cigarettes, uncomplicated; Z79.899 Other long term (current) drug therapy
CPT/HCPCS: 36415; 80053; 81001; 81025; 83690; 85025; 99283; 99284; A9270; G0480; J8499; Q0162; 80320; 81003; 87086

== ENCOUNTER 2022-11-27 08:00 | Outpatient (CLI) | payer MEDICARE, MEDICAID | END 2022-11-27 23:59 | disposition home or self-care (01) | LOC: LAB.WC 08:00 | PROVIDERS: ATTEND Nurse Practitioner | DX: Z32.00 Encounter for pregnancy test, result unknown (principal) ==

== ENCOUNTER 2023-01-06 10:57 | Emergency (ER) | payer MEDICARE, MEDICAID ==
[2023-01-06 11:08] VITALS: BP 146/97
--- NOTE | 2023-01-06 11:22 | ED Physician Documentation ---
History of Present Illness - Stated complaint Stated Complaint: LT FOOT PX, SWELLING - Chief complaint Chief Complaint: Trauma Ext - Additonal information Additional information: 47-year-old female presents emergency department for evaluation of distal left lateral foot pain sustained after tripping at home and catching her foot in the doorway. She does have a history of previous crush injury and fracture to this foot about 5 years ago that required multiple operations as well as pinning and hardware within the foot. She does walk with a cane at baseline due to a history of left hip replacement. Patient did drive herself to the hospital and took 800 Motrin prior to arrival which she reports took the edge off. 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 HEENT: None Psych: Depression Musculoskeletal: Osteoarthritis Derm: None - Past Surgical History Past Surgical History: Yes Ortho: ACL reconstruction, Other - Present Medications Home Medications: Ambulatory Orders Medication Instructions Recorded Confirmed Fluoxetine HCl 40 mg ORAL DAILY 04/30/20 04/15/21 Omeprazole 40 mg PO DAILY 01/14/21 04/15/21 Gabapentin [Neurontin] 300 mg PO HS 04/15/21 04/15/21 HYDROcod/ACETAM 5/325 [[place] 5/325] 1 - 2 ea PO Q6H PRN #12 tablet 04/15/21 Lactobacillus Combination No.4 1 each PO DAILY #14 cap 02/08/22 [Probiotic] Vancomycin [Vancocin] 125 mg PO Q6HR #40 cap 02/08/22 LORazepam [Ativan] 1 mg PO Q4HR PRN #12 tablet 11/15/22 Ondansetron Odt [Zofran] 4 mg TL Q6H PRN #10 tablet 11/15/22 - Allergies Allergies/Adverse Reactions: Allergies Allergy/AdvReac Type Severity Reaction Status Date / Time No Known Drug Allergies Allergy Verified 01/06/23 11:07 - Social History Does the pt smoke?: Yes Smoking Status: Current every day smoker Does the pt drink ETOH?: No Does the pt have substance abuse?: No - Immunizations Immunizations are current?: Yes - POLST Patient has POLST: No POLST Status: Full Code PD ED PE EXPANDED - General General: Alert, No acute distress - Extremities Extremities: Left foot (Mild swelling and tenderness without ecchymosis dorsum of the left foot laterally most prominent over the MCP joint of the fourth and fifth toes. Multiple scars on the foot and ankle all well-healed. No obvious deformity. Neurovascularly intact. 2+ DP pulse.) Results - Vitals Vitals: Vital Signs - 24 hr 01/06/23 11:04 Temperature 36.0 C L Heart Rate 84 Respiratory 20 Rate Blood Pressure 146/97 H O2 Saturation 99 Oxygen O2 Source Room air - Rads (name of study) left foot Relevant Findings:: EMP independent interpretation of test (Left proximal phalanx fracture) PD Medical Decision Making - ED course Complexity details: reviewed results, re-evaluated patient, considered differential, d/w patient ED course: 47-year-old female presents emergency department for evaluation of acute left Small toe pain after tripping at home and jamming her foot in the doorway. My interpretation of the x-ray is that there is a left proximal phalanx fracture however I do not see any other associated fracture on x-ray of the foot. The patient does have a previous history of extensive injury to this foot including a crush injury about 5 years ago. Patient was norris taped at the bedside and given hard postop shoe. She is advised Tylenol and Motrin for analgesia at home. She will follow closely with PCP. Recommended continued follow-up with orthopedics. Otherwise usual emergent return precautions were discussed Departure - Departure Disposition: 01 Home, Self Care Clinical Impression: Fracture of proximal phalanx of toe of left foot Condition: Stable Record reviewed to determine appropriate education?: Yes Instructions: ED Fx Toe Closed Comments: Mirian The x-ray of the foot does confirm a proximal phalanx fracture of your small toe. Typically these are managed nonoperatively simply by norris taping your toe to the adjacent toe. It would likely take about 6 weeks for this to fully heal perhaps a little longer as you do have some mild osteopenia which is thinning of the bones. I encourage you to wear the hard soled shoe when out of bed. In general I would recommend Tylenol and ibuprofen [id number] for foot discomfort. With your previous history of injury and fracture to this foot I recommend you follow closely with your previous provider. Return to the ER if you find you are having worsening symptoms.
--- OUTSIDE RECORDS SUMMARY | 2023-01-06 11:33 | EXTERNAL MEDICAL SUMMARY RPT | Continuity of Care Document ---
Author Name Unknown Address [address] [place] [address] Phone Organization [facility] Address [address] [place] [address] Phone Problems date description facility 2022-12-19 08:13 Radiculopathy, lumbar region Is [facility] Results/Labs test date author facility value unit interpretation Result panel 1 (unknown) (no date) (unknown) (unknown) (no value) (units unknown) (unknown) (unknown) (no date) (unknown) (unknown) 12/19/22 (units unknown) (unknown) (unknown) (no date) (unknown) (unknown) 1. No extrinsi c compression or significant abnormality is seen along the course (units unknown) (unknown) (unknown) (no date) (unknown) (unknown) [address] [place] [address] (un its unknown) (unknown) (unknown) (no date) (unknown) (unknown) 2. Mild asymme tric atrophy and grade 2 fatty infiltration of the left piriformis (units unknown) (unknown) (unknown) (no date) (unknown) (unknown) [id number] (units unknown) (unknown) (unknown) (no date) (unknown) (unknown) 3. Mild focal osseous edema in the left hemisacrum adjacent to the sacroiliac (units unknown) (unknown) (unknown) (no date) (unknown) (unknown) 12/11/2022, 13:13. (u nits unknown) (unknown) (unknown) (no date) (unknown) (unknown) 12/11/2022, 13:21. (u nits unknown) (unknown) (unknown) (no date) (unknown) (unknown) Accession Numb er: [id number] (units unknown) (unknown) (unknown) (no date) (unknown) (unknown) Accession Numb er: [id number] (units unknown) (unknown) (unknown) (no date) (unknown) (unknown) Age/Sex: 47 / F Date of Service: (units unknown) (unknown) (unknown) (no date) (unknown) (unknown) Alignment and Curvature: There is normal bony alignment. (units unknown) (unknown) (unknown) (no date) (unknown) (unknown) [place] [address] (units unknown) (unknown) (unknown) (no date) (unknown) (unknown) Approved by: Weston Carvajal M.D. on 12/19/2022 at 12:43 (units unknown) (unknown) (unknown) (no date) (unknown) (unknown) Approved by: David Guerrero M.D. on 12/19/2022 at 14:52 (units unknown) (unknown) (unknown) (no date) (unknown) (unknown) Bone Marrow: M arrow is of normal overall signal. No acute vertebral body (units unknown) (unknown) (unknown) (no date) (unknown) (unknown) Bones: Mild fo saadia osseous edema is seen within the left jimi sacrum adjacent to (units unknown) (unknown) (unknown) (no date) (unknown) (unknown) COMPARISON: [facility] [place], CR, XR LUMBAR SPINE 2 OR 3 (units unknown) (unknown) (unknown) (no date) (unknown) (unknown) COMPARISON: [facility] [place], CR, XR PELVIS WITH LATERAL (units unknown) (unknown) (unknown) (no date) (unknown) (unknown) : 8 Acct:[id number] (units unknown) (unknown) (unknown) (no date) (unknown) (unknown) Dictated by: David Guerrero M.D. on 12/19/2022 at 14:50 (units unknown) (unknown) (unknown) (no date) (unknown) (unknown) Disc bulge wit h superimposed protrusion at L4-5. Mild compromise of the right (units unknown) (unknown) (unknown) (no date) (unknown) (unknown) Discs: Moderat e desiccation is present at L4. (units unknown) (unknown) (unknown) (no date) (unknown) (unknown) FINDINGS: (units unknown) (unknown) (unknown) (no date) (unknown) (unknown) HIP LEFT, (units unknown) (unknown) (unknown) (no date) (unknown) (unknown) IMPRESSION: (units unknown) (unknown) (unknown) (no date) (unknown) (unknown) INDICATIONS: Radiculopathy, lumbar region (units unknown) (unknown) (unknown) (no date) (unknown) (unknown) Image quality: Excellent. (units unknown) (unknown) (unknown) (no date) (unknown) (unknown) [facility] (uni ts unknown) (unknown) (unknown) (no date) (unknown) (unknown) L1-L2: No disc bulge, spinal stenosis or foraminal narrowing. Mild epidural (units unknown) (unknown) (unknown) (no date) (unknown) (unknown) L2-L3: No disc bulge, spinal stenosis or foraminal narrowing. Mild epidural (units unknown) (unknown) (unknown) (no date) (unknown) (unknown) L3-L4: Minimal disc bulge without spinal stenosis. Mild epidural lipomatosis (units unknown) (unknown) (unknown) (no date) (unknown) (unknown) L4-L5: Mild di sc bulge with asymmetric superimposed right posterior paracentral (units unknown) (unknown) (unknown) (no date) (unknown) (unknown) L5-S1: No disc bulge, spinal stenosis or foraminal narrowing. (units unknown) (unknown) (unknown) (no date) (unknown) (unknown) Loc: MRI (units unknown) (unknown) (unknown) (no date) (unknown) (unknown) Lumbosacral pl exus: Superior to the piriformis muscles, the pre-plexal (units unknown) (unknown) (unknown) (no date) (unknown) (unknown) Magnetic Reson ance Report (units unknown) (unknown) (unknown) (no date) (unknown) (unknown) Noncontrast ob lique axial and oblique coronal T1 spin echo and STIR through the (units unknown) (unknown) (unknown) (no date) (unknown) (unknown) Noncontrast sagittal T1 spin echo and T2 fast echo, sagittal STIR, and T2 fast (units unknown) (unknown) (unknown) (no date) (unknown) (unknown) Ordering Provi sandra: Brandan Devries MD (units unknown) (unknown) (unknown) (no date) (unknown) (unknown) PROCEDURE: MR LUMBAR SPINE WO CON (units unknown) (unknown) (unknown) (no date) (unknown) (unknown) PROCEDURE: MR PELVIS WO CON (units unknown) (unknown) (unknown) (no date) (unknown) (unknown) Paraspinous So ft Tissues: No paravertebral masses. (units unknown) (unknown) (unknown) (no date) (unknown) (unknown) Patient: Temitope Miguel MR#: [id number] (units unknown) (unknown) (unknown) (no date) (unknown) (unknown) Procedure: MR lumbar spine wo con (units unknown) (unknown) (unknown) (no date) (unknown) (unknown) Procedure: MR pelvis wo con (units unknown) (unknown) (unknown) (no date) (unknown) (unknown) Right piriform is muscle is normal in bulk. (units unknown) (unknown) (unknown) (no date) (unknown) (unknown) Signed (units unknown) (unknown) (unknown) (no date) (unknown) (unknown) Soft tissues: There is mild asymmetric atrophy and grade 2 fatty infiltration (units unknown) (unknown) (unknown) (no date) (unknown) (unknown) Spinal Cord: C onus medullaris terminates at the T12 level. Visualized cord (units unknown) (unknown) (unknown) (no date) (unknown) (unknown) T12-L1: No dis c bulge, spinal stenosis or foraminal narrowing. (units unknown) (unknown) (unknown) (no date) (unknown) (unknown) TECHNIQUE: (units unknown) (unknown) (unknown) (no date) (unknown) (unknown) VIEWS, (units unknown) (unknown) (unknown) (no date) (unknown) (unknown) appear (units unknown) (unknown) (unknown) (no date) (unknown) (unknown) as well as (units unknown) (unknown) (unknown) (no date) (unknown) (unknown) be related to mild degenerative changes or sacroiliitis. (units unknown) (unknown) (unknown) (no date) (unknown) (unknown) compression (units unknown) (unknown) (unknown) (no date) (unknown) (unknown) demonstrates (units unknown) (unknown) (unknown) (no date) (unknown) (unknown) fluid. No visualized adenopathy by size criteria. (units unknown) (unknown) (unknown) (no date) (unknown) (unknown) fractures. (units unknown) (unknown) (unknown) (no date) (unknown) (unknown) free pelvic (units unknown) (unknown) (unknown) (no date) (unknown) (unknown) joint may (units unknown) (unknown) (unknown) (no date) (unknown) (unknown) lateral (units unknown) (unknown) (unknown) (no date) (unknown) (unknown) left hip and p elvic orthopedic hardware. (units unknown) (unknown) (unknown) (no date) (unknown) (unknown) left piriformi s muscle. The right piriformis muscle is normal in bulk. No (units unknown) (unknown) (unknown) (no date) (unknown) (unknown) ligamentum fla vum hypertrophy. (units unknown) (unknown) (unknown) (no date) (unknown) (unknown) lipomatosis. (units unknown) (unknown) (unknown) (no date) (unknown) (unknown) lumbosacral pl exus region. (units unknown) (unknown) (unknown) (no date) (unknown) (unknown) lumbosacral plexus. (units unknown) (unknown) (unknown) (no date) (unknown) (unknown) masses. Rectum appears normal in caliber and wall thickness. No pathologic (units unknown) (unknown) (unknown) (no date) (unknown) (unknown) may be performed. (u nits unknown) (unknown) (unknown) (no date) (unknown) (unknown) muscle. (units unknown) (unknown) (unknown) (no date) (unknown) (unknown) muscles, the s acral plexus proper demonstrates normal morphology (lumbosacral (units unknown) (unknown) (unknown) (no date) (unknown) (unknown) narrowing. (units unknown) (unknown) (unknown) (no date) (unknown) (unknown) normal signal and size. (units unknown) (unknown) (unknown) (no date) (unknown) (unknown) normal, includ ing the lumbosacral trunk and S1 root. Just anterior to the (units unknown) (unknown) (unknown) (no date) (unknown) (unknown) normal. (units unknown) (unknown) (unknown) (no date) (unknown) (unknown) of the (units unknown) (unknown) (unknown) (no date) (unknown) (unknown) piriformis (units unknown) (unknown) (unknown) (no date) (unknown) (unknown) presacral (units unknown) (unknown) (unknown) (no date) (unknown) (unknown) protrusion. Th ere is mild compromise at the right lateral recess. No foraminal (units unknown) (unknown) (unknown) (no date) (unknown) (unknown) recess. (units unknown) (unknown) (unknown) (no date) (unknown) (unknown) related to (units unknown) (unknown) (unknown) (no date) (unknown) (unknown) sacroiliac josep nt. Marrow is normal in overall signal. Metal artifact is seen (units unknown) (unknown) (unknown) (no date) (unknown) (unknown) spin echo (units unknown) (unknown) (unknown) (no date) (unknown) (unknown) structures appear (u nits unknown) (unknown) (unknown) (no date) (unknown) (unknown) the (units unknown) (unknown) (unknown) (no date) (unknown) (unknown) through the mike mbar spine. In cases with scoliosis, additional coronal T2 fast (units unknown) (unknown) (unknown) (no date) (unknown) (unknown) to S3 nerve ro ots). Inferior to the piriformis muscles, the sciatic nerves (units unknown) (unknown) (unknown) (no date) (unknown) (unknown) trunk, S1 (units unknown) (unknown)
--- NOTE | 2023-01-06 12:38 | XRAY Report ---
PROCEDURE: Foot 3 View LT INDICATIONS: PAIN ON 5TH TOE AFTER FALL TECHNIQUE: 4 views of the foot were acquired. COMPARISON: None. FINDINGS: Bones: Transverse fracture through the fifth proximal phalanx noted. Arthritic changes noted at the tarsometatarsal and intertarsal joints as well as the fifth metatarsophalangeal joint Soft tissues: No suspicious soft tissue calcifications or masses. IMPRESSION: Fifth proximal phalangeal fracture Osteopenia Reviewed by: Daniel Buchanan MD on 01/06/2023 11:36 AM NICOLE Approved by: Daniel Buchanan MD on 01/06/2023 11:36 AM NICOLE Station ID: [id number]
== END 2023-01-06 12:53 | disposition home or self-care (01) ==
LOC: ED 10:57
DX: S92.512A Displaced fracture of proximal phalanx of left lesser toe(s), initial encounter for closed fracture (principal); W01.0XXA Fall on same level from slipping, tripping and stumbling without subsequent striking against object, initial encounter; Y92.009 Unspecified place in unspecified non-institutional (private) residence as the place of occurrence of the external cause
CPT/HCPCS: 99282; 99283

== ENCOUNTER 2023-01-28 09:30 | Emergency (ER) | payer MEDICARE, MEDICAID ==
[2023-01-28 09:49] VITALS: BP 123/71
--- NOTE | 2023-01-28 09:51 | ED Physician Documentation ---
History of Present Illness - Stated complaint Stated Complaint: LT LEG PX - Chief complaint Chief Complaint: Ext Problem - Additonal information Additional information: Patient is a 47-year-old female presenting to the emergency department with left knee pain. Reports has had pain since tripping over her cat 3 weeks ago. At that time was diagnosed with left toe fracture. Reports pain is worse with physical activity. Is able to flex and extend the knee. Reports a history of multiple musculoskeletal injuries including injury to her other knee, on the right side requiring pin placement. Denies any recent falls or injuries to the knee. 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 : None HEENT: None Psych: Depression Musculoskeletal: Osteoarthritis Derm: None - Past Surgical History Past Surgical History: Yes Ortho: ACL reconstruction, Other - Present Medications Home Medications: Ambulatory Orders Medication Instructions Recorded Confirmed Fluoxetine HCl 40 mg ORAL DAILY 04/30/20 04/15/21 Omeprazole 40 mg PO DAILY 01/14/21 04/15/21 Gabapentin [Neurontin] 300 mg PO HS 04/15/21 04/15/21 HYDROcod/ACETAM 5/325 [[place] 5/325] 1 - 2 ea PO Q6H PRN #12 tablet 04/15/21 Lactobacillus Combination No.4 1 each PO DAILY #14 cap 02/08/22 [Probiotic] Vancomycin [Vancocin] 125 mg PO Q6HR #40 cap 02/08/22 LORazepam [Ativan] 1 mg PO Q4HR PRN #12 tablet 11/15/22 Ondansetron Odt [Zofran] 4 mg TL Q6H PRN #10 tablet 11/15/22 - Allergies Allergies/Adverse Reactions: Allergies Allergy/AdvReac Type Severity Reaction Status Date / Time No Known Drug Allergies Allergy Verified 01/28/23 09:38 - Social History Does the pt smoke?: Yes Smoking Status: Current every day smoker Does the pt drink ETOH?: No Does the pt have substance abuse?: No - Immunizations Immunizations are current?: Yes - POLST Patient has POLST: No POLST Status: Full Code PD ED PE NORMAL - General General: Alert and oriented X 3 - HEENT HEENT: Atraumatic - Respiratory Respiratory: No respiratory distress - Extremities Extremities: Other (Patient able to flex and extend the knee. Negative anterior drawer, negative posterior drawer, negative valgus or varus instability. No ballottement sign. No tender or palpable bursa. No erythema. Patellar pulses easily palpable.) Results - Vitals Vitals: Vital Signs - 24 hr 01/28/23 09:38 Temperature 36.2 C L Heart Rate 63 Respiratory 16 Rate Blood Pressure 123/71 O2 Saturation 100 Oxygen O2 Source Room air PD Medical Decision Making - ED course Complexity details: reviewed results, re-evaluated patient, d/w patient ED course: Patient 47-year-old female presenting to the emergency department with 3 weeks left knee pain. Pain started shortly after a fall which she was diagnosed with a left-sided toe fracture. No indications joint instability here in the emergency department. She is able to lift the leg against gravity and there is no indications of patellar tendon rupture or other tendinopathy. No appreciated ball swollen or inflamed bursa on exam. Otherwise the lower extremity appears neurovascularly intact. X-rays were negative for acute fracture or dislocation. She was provided with a knee immobilizer. She was offered crutches which she states she has a pair at home. Will discharge at this time for follow-up with primary care/physical therapy as needed. Clear return precautions given. Departure - Departure Disposition: 01 Home, Self Care Clinical Impression: Knee pain Qualifiers: Chronicity: unspecified Laterality: left Qualified Code(s): M25.562 - Pain in left knee Comments: Thank you for allowing us to care for you today would be general. Today in the emergency department you were evaluated for any possible life- threatening medical emergency. Overall the examination of your knee is very reassuring. I do not appreciate any severe tendon injury or signs of infection your x-rays were negative for fracture or dislocation. Please use the knee immobilizer provided here in the emergency department to aid in healing. I also recommend using your crutches at home as needed. Please follow-up with your primary care doctor. If it anytime you have new or worsening symptoms please not hesitate to return.
[2023-01-28] MEDS ORDERED: oxyCODONE 5 MG TABLET PO STA (09:53)
--- OUTSIDE RECORDS SUMMARY | 2023-01-28 09:57 | EXTERNAL MEDICAL SUMMARY RPT | Continuity of Care Document ---
Author Name Unknown Address [address] [place] [address] Phone Organization [facility] Address [address] [place] [address] Phone Problems date description facility 2022-12-19 08:13 Radiculopathy, lumbar region Is [facility] Results/Labs test date author facility value unit interpretation Result panel 1 (unknown) (no date) (unknown) (unknown) (no value) (units unknown) (unknown) (unknown) (no date) (unknown) (unknown) 12/19/22 (units unknown) (unknown) (unknown) (no date) (unknown) (unknown) 1. No extrinsi c compression or significant abnormality is seen along the course (units unknown) (unknown) (unknown) (no date) (unknown) (unknown) [address] [place] [address] (un its unknown) (unknown) (unknown) (no date) (unknown) (unknown) 2. Mild asymme tric atrophy and grade 2 fatty infiltration of the left piriformis (units unknown) (unknown) (unknown) (no date) (unknown) (unknown) [id number] (units unknown) (unknown) (unknown) (no date) (unknown) (unknown) 3. Mild focal osseous edema in the left hemisacrum adjacent to the sacroiliac (units unknown) (unknown) (unknown) (no date) (unknown) (unknown) 12/11/2022, 13:13. (u nits unknown) (unknown) (unknown) (no date) (unknown) (unknown) 12/11/2022, 13:21. (u nits unknown) (unknown) (unknown) (no date) (unknown) (unknown) Accession Numb er: [id number] (units unknown) (unknown) (unknown) (no date) (unknown) (unknown) Accession Numb er: [id number] (units unknown) (unknown) (unknown) (no date) (unknown) (unknown) Age/Sex: 47 / F Date of Service: (units unknown) (unknown) (unknown) (no date) (unknown) (unknown) Alignment and Curvature: There is normal bony alignment. (units unknown) (unknown) (unknown) (no date) (unknown) (unknown) [place] [address] (units unknown) (unknown) (unknown) (no date) (unknown) [...] (unknown) (unknown) (no date) (unknown) (unknown) COMPARISON: [facility] [place], CR, XR LUMBAR SPINE 2 OR 3 (units unknown) (unknown) (unknown) (no date) (unknown) (unknown) COMPARISON: [facility] [place], CR, XR PELVIS WITH LATERAL (units unknown) (unknown) (unknown) (no date) (unknown) (unknown) : 8 Acct:[id number] (units unknown) (unknown) (unknown) (no date) (unknown) [...] unknown) (unknown) (unknown) (no date) (unknown) (unknown) [facility] (uni ts unknown) (unknown) (unknown) (no [...]
--- NOTE | 2023-01-28 10:28 | XRAY Report ---
PROCEDURE: Knee 3 View LT INDICATIONS: pain, fall TECHNIQUE: 3 views of the left knee(s) were acquired. COMPARISON: None. FINDINGS: Bones: No fractures or dislocations. No suspicious bony lesions. Soft tissues: No knee joint effusion. No suspicious soft tissue calcifications or masses. IMPRESSION: No acute bony abnormality. Reviewed by: Pj Stafford on 01/28/2023 10:27 AM PDT Approved by: Pj Stafford on 01/28/2023 10:27 AM PDT Station ID: [id number]
== END 2023-01-28 10:53 | disposition home or self-care (01) ==
LOC: ED 09:30
DX: M25.562 Pain in left knee (principal); F17.200 Nicotine dependence, unspecified, uncomplicated
CPT/HCPCS: 73562; 99283; A9270

== ENCOUNTER 2023-04-29 06:55 | Emergency (ER) | payer MEDICARE, MEDICAID ==
--- NOTE | 2023-04-29 07:15 | ED Physician Documentation ---
PD HPI NVD - Stated complaint Stated Complaint: HEADACHE, DIARRHEA - Chief complaint Chief Complaint: Abd Pain - History obtained from History obtained from: Patient - History of Present Illness Timing - onset: How many days ago (4-5) Timing - duration: Days (4-5) Timing - details: Abrupt onset, Still present Associated symptoms: Abdominal pain (cramping intermittent, mainly preceeding diarrheal movements 3-4 times daily.), Loss of appetite, Other (nausea but no vomiting.). No: Fever Contributing factors: Recent antibiotics (single dose Amox 2000 mg prior to dental cleaning 5 days ago.). No: Sick contact Improved by: No: Eating, Meds (pepto and imodium without improvement.) Worsened by: Eating. No: Moving Similar symptoms before: Diagnosis (had episode of C Diff about 6-8 months ago, cleared with single treatment course.) Recently seen: Clinic (dentist 5 days ago) Review of Systems Constitutional: reports: Fatigue. denies: Fever, Chills, Myalgias Nose: denies: Rhinorrhea / runny nose, Congestion Throat: denies: Sore throat Respiratory: denies: Cough GI: reports: Nausea, Diarrhea. denies: Abdominal Swelling, Vomiting, Constipation, Bloody / black stool : denies: Dysuria Neurologic: reports: Generalized weakness, Headache. 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 HEENT: None Psych: Depression Musculoskeletal: Osteoarthritis Derm: None - Past Surgical History Past Surgical History: Yes Ortho: ACL reconstruction, Other - Present Medications Home Medications: Ambulatory Orders Medication Instructions Recorded Confirmed Fluoxetine HCl 40 mg ORAL DAILY 04/30/20 04/15/21 Omeprazole 40 mg PO DAILY 01/14/21 04/15/21 Gabapentin [Neurontin] 300 mg PO HS 04/15/21 04/15/21 HYDROcod/ACETAM 5/325 [[place] 5/325] 1 - 2 ea PO Q6H PRN #12 tablet 04/15/21 Lactobacillus Combination No.4 1 each PO DAILY #14 cap 02/08/22 [Probiotic] Vancomycin [Vancocin] 125 mg PO Q6HR #40 cap 02/08/22 LORazepam [Ativan] 1 mg PO Q4HR PRN #12 tablet 11/15/22 Ondansetron Odt [Zofran] 4 mg TL Q6H PRN #10 tablet 11/15/22 Diphenoxylate/Atropine [Lomotil] 1 each PO QID PRN #16 tablet 04/29/23 Ondansetron Odt [Zofran] 4 mg TL Q6H PRN #15 tablet 04/29/23 Promethazine [Phenergan] 25 mg PO Q6H PRN #10 tab 04/29/23 - Allergies Allergies/Adverse Reactions: Allergies Allergy/AdvReac Type Severity Reaction Status Date / Time No Known Drug Allergies Allergy Verified 04/29/23 07:04 - Social History Does the pt smoke?: Yes Smoking Status: Current every day smoker Does the pt drink ETOH?: No Does the pt have substance abuse?: No - Immunizations Immunizations are current?: Yes - POLST Patient has POLST: No POLST Status: Full Code PD ED PE NORMAL - Vitals Vital signs reviewed: Yes - General General: Alert and oriented X 3, No acute distress, Well developed/nourished - HEENT HEENT: Moist mucous membranes, Pharynx benign - Neck Neck: Supple, no meningeal sign, No adenopathy - Cardiac Cardiac: RRR, No murmur - Respiratory Respiratory: Clear bilaterally - Abdomen Abdomen: Soft, Non distended, No organomegaly, Other (minimal tender left to mid abd without guarding, percussion nor rebound tenderness. ) - Rectal Rectal: Deferred - Derm Derm: Normal color, Warm and dry - Neuro Neuro: Alert and oriented X 3, No motor deficit, Normal speech Results - Vitals Vitals: Oxygen O2 Source Room air - Labs Labs: Laboratory Tests 04/29/23 04/29/23 07:40 09:30 Sodium 135 Potassium 3.8 Chloride 103 Carbon Dioxide 25 Anion Gap 7.0 BUN 12 Creatinine 0.7 Estimated GFR (MDRD) 90 Glucose 104 Calcium 9.7 Total Bilirubin 0.3 AST 12 ALT 14 Alkaline Phosphatase 75 Total Protein 7.4 Albumin 4.3 Globulin 3.1 Albumin/Globulin Ratio 1.4 Lipase 22 Stl C. diff Tox B Gene NEGATIVE PD Medical Decision Making - ED course Complexity details: reviewed results (initial C diff nnegative. Pending other stool studies. If negative and continued diarrrhea, consider empiric zithromax per UpToDate suggestions. ), considered differential (consider viral GE, food related as well, but most likely related to the recent abx. Can give anti- diarrheal and antispasmodic for the pains and diarrhea. Test for C Diff as well as culture. Probiotics. ), d/w patient (she feels dehydrated from less intkae but did not feel she needed an IV. Will give antiemetic. ) Departure - Departure Disposition: 01 Home, Self Care Clinical Impression: Abdominal cramping, Diarrhea Condition: Stable Record reviewed to determine appropriate education?: Yes Follow-Up: Sandrita Henley ARNP [Primary Care Provider] - Prescriptions: Diphenoxylate/Atropine [Lomotil] 1 each PO QID PRN #16 tablet PRN Reason: Diarrhea Promethazine [Phenergan] 25 mg PO Q6H PRN #10 tab PRN Reason: Nausea / Vomiting Ondansetron Odt [Zofran] 4 mg TL Q6H PRN #15 tablet PRN Reason: Nausea / Vomiting Comments: I sent prescriptions for a couple of nausea medicines as well as a antidiarrhea medicine to your pharmacy [facility] in [place]. The stool studies we are doing take at least 2 to 3 hours for the C. difficile and another day I believe for the stool "culture". At this point we can treat with nausea medicine and antidiarrheal. We will know at least later this morning if it C. difficile or not. At this point I would hold off on antibiotics until we have more test results. We will call you with the C. difficile test result later and you can also look it up on the patient portal with all your test results. If there is a specific target to treat on your stool studies, we can phone in prescriptions for you to be using. If the tests are negative and you are still having some diarrhea and cramps then we can use an empiric antibiotic presuming an overflow of E. coli. Continue with your probiotics and regular diet and stay well-hydrated. Forms: PCP List Discharge Date/Time: 04/29/23 09:50
[2023-04-29] MEDS ORDERED: ONDANSETRON ODT 4 MG TABLET TL STA (07:30)
[2023-04-29 07:59] LABS: ALBUMIN 4.3 g/dL (3.2-5.5); ALBUMIN/GLOBULIN RATIO 1.4 (1.0-2.2); BILIRUBIN,TOTAL 0.3 mg/dL (0.2-1.0); CALCIUM 9.7 mg/dL (8.5-10.3); CREATININE 0.7 mg/dL (0.6-1.3); POTASSIUM 3.8 mmol/L (3.5-4.5); TOTAL PROTEIN 7.4 g/dL (6.4-8.9)
[2023-04-29] MEDS ORDERED: DIPHENOX/ATROPINE 2.5/0.025 MG TABLET PO STA (09:35)
[2023-04-29] MEDS ORDERED: DICYCLOMINE 10 MG CAPSULE PO STA (09:35)
[2023-04-29 09:39] VITALS: BP 129/80; O2SAT 100
[2023-05-01 16:08] LABS: CRYPTOSPORIDIUM EIA Negative (Negative); GIARDIA LAMBLIA AG EIA Negative (Negative)
== END 2023-04-29 09:50 | disposition home or self-care (01) ==
LOC: ED 06:55
DX: R10.9 Unspecified abdominal pain (principal); R19.7 Diarrhea, unspecified; F17.200 Nicotine dependence, unspecified, uncomplicated; Z79.899 Other long term (current) drug therapy
CPT/HCPCS: 36415; 80053; 83690; 87045; 87046; 87328; 87329; 87427; 87493; 99283; A9270; Q0162

== ENCOUNTER 2023-10-11 16:07 | Emergency (ER) | payer MEDICARE, MEDICAID ==
[2023-10-11 16:23] VITALS: BP 130/105; O2SAT 97
--- NOTE | 2023-10-11 16:48 | ED Physician Documentation ---
PD HPI SKIN - Stated complaint Stated Complaint: L FINGER LAC - Chief complaint Chief Complaint: Laceration - Additional information Additional information: 47-year-old female presents emergency department for left ring finger laceration. Patient says that she was cutting a potato knife accidentally slipped into the palmar aspect of her left ring finger at the tip. There is quite a bit of bruising and bleeding she is not on blood thinners. 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 HEENT: None Psych: Depression Musculoskeletal: Osteoarthritis Derm: None - Past Surgical History Past Surgical History: Yes General: Hiatal hernia repair Ortho: ACL reconstruction, Other - Present Medications Home Medications: Ambulatory Orders Medication Instructions Recorded Confirmed Fluoxetine HCl 40 mg ORAL DAILY 04/30/20 04/15/21 Omeprazole 40 mg PO DAILY 01/14/21 04/15/21 Gabapentin [Neurontin] 300 mg PO HS 04/15/21 04/15/21 HYDROcod/ACETAM 5/325 [[place] 5/325] 1 - 2 ea PO Q6H PRN #12 tablet 04/15/21 Lactobacillus Combination No.4 1 each PO DAILY #14 cap 02/08/22 [Probiotic] Vancomycin [Vancocin] 125 mg PO Q6HR #40 cap 02/08/22 LORazepam [Ativan] 1 mg PO Q4HR PRN #12 tablet 11/15/22 Ondansetron Odt [Zofran] 4 mg TL Q6H PRN #10 tablet 11/15/22 Diphenoxylate/Atropine [Lomotil] 1 each PO QID PRN #16 tablet 04/29/23 Ondansetron Odt [Zofran] 4 mg TL Q6H PRN #15 tablet 04/29/23 Promethazine [Phenergan] 25 mg PO Q6H PRN #10 tab 04/29/23 - Allergies Allergies/Adverse Reactions: Allergies Allergy/AdvReac Type Severity Reaction Status Date / Time No Known Drug Allergies Allergy Verified 10/11/23 16:17 - Social History Does the pt smoke?: Yes Smoking Status: Current every day smoker Does the pt drink ETOH?: No Does the pt have substance abuse?: No - Immunizations Immunizations are current?: Yes - POLST Patient has POLST: No POLST Status: Full Code Results - Vitals Vitals: Vital Signs - 24 hr 10/11/23 16:12 Temperature 36.4 C L Heart Rate 88 Respiratory 16 Rate Blood Pressure 130/105 H O2 Saturation 97 Oxygen O2 Source Room air - Rads (name of study) Left finger x-ray. Relevant Findings:: Final report received, EMP independent interpretation of test, Other (No acute bony abnormalities or fractures) Procedures - Laceration (location) left ring finger laceration Length in cm: 0.5 Wound type: Linear Neurovascular status: Sensory intact Wound preparation: Hibiclens Skin layer closure: Size #-0 - enter number (4-0) Other: Patient tolerated well, No complications, Neurovascular intact, Tetanus UTD PD Medical Decision Making - ED course ED course: Laceration to left ring finger to the palmar aspect at the tip of her finger. We have a hard time getting the bleeding to be controlled I went ahead and ordered an x-ray to make sure that there is no bony involvement patient says that she felt like there could have been which is why decided to do the x-rays to decide if she needed to be on antibiotics or not. 1 stitch was placed over the laceration to help with bleeding bleeding was uncontrolled. CMS intact tetanus already up-to-date bacitracin and Band-Aid applied patient given return precautions and told when to remove sutures and how to manage wound at home. All questions answered safe for discharge. Departure - Departure Disposition: 01 Home, Self Care Clinical Impression: Finger laceration Qualifiers: Encounter type: initial encounter Finger: ring finger Damage to nail status: without damage Foreign body presence: without foreign body Laterality: left Qualified Code(s): S61.215A - Laceration without foreign body of left ring finger without damage to nail, initial encounter Instructions: ED Laceration Hand Comments: Come back for any signs of infection which would include: Redness, swelling, drainage, increased pain, or fevers. You can wash it soap and water. Keep it covered and moist with bacitracin ointment which is available over the counter; avoid neosporin. Follow-up with your physician in 7 days for suture removal. Forms: PCP List Discharge Date/Time: 10/11/23 16:52
--- NOTE | 2023-10-11 16:59 | XRAY Report ---
PROCEDURE: Finger(s) LT INDICATIONS: left ring finger laceration, r/o fx TECHNIQUE: AP hand, 2 views of the fourth finger(s) acquired. COMPARISON: None. FINDINGS: Bones: No fractures or dislocations. No suspicious bony lesions. Soft tissues: No suspicious soft tissue calcifications or masses. IMPRESSION: No acute bony abnormality. Reviewed by: Amber Romero MD on 10/11/2023 3:58 PM AKRITESH Approved by: Amber Romero MD on 10/11/2023 3:58 PM AKDT Station ID: [id number]
== END 2023-10-11 16:52 | disposition home or self-care (01) ==
LOC: ED 16:07
DX: S61.215A Laceration without foreign body of left ring finger without damage to nail, initial encounter (principal); W26.0XXA Contact with knife, initial encounter; Y93.G9 Activity, other involving cooking and grilling; F17.200 Nicotine dependence, unspecified, uncomplicated; Z79.899 Other long term (current) drug therapy
CPT/HCPCS: 12001; 99283

== ENCOUNTER 2023-10-20 10:22 | Outpatient (CLI) | payer MEDICARE, MEDICAID ==
[2023-10-20 10:31] LABS: BASOPHILS % (AUTO) 0.4 %; EOSINOPHILS # (AUTO) 0.1 10^3/uL (0.0-0.7); HCT - HEMATOCRIT 40.1 % (37.0-47.0); HGB - HEMOGLOBIN 12.5 g/dL (12.0-16.0); LYMPHOCYTES % (AUTO) 28.6 %; MEAN CORPUSCULAR HGB CONC 31.2 g/dL (32.0-36.0); MEAN CORPUSCULAR VOLUME 83.5 fL (81.0-99.0); MEAN PLATELET VOLUME 10.3 fL (7.9-10.8); MONOCYTES # (AUTO) 0.6 10^3/uL (0.0-1.0); MONOCYTES % (AUTO) 8.6 %; NEUTROPHILS # (AUTO) 4.1 10^3/uL (1.5-6.6); NEUTROPHILS % (AUTO) 60.3 %; PLT - PLATELET COUNT 234 10^3/uL (130-450); WHITE BLOOD COUNT 6.9 x10^3/uL (4.8-10.8)
[2023-10-20 10:44] LABS: CALCIUM 9.3 mg/dL (8.5-10.3); CREATININE 0.6 mg/dL (0.6-1.3); POTASSIUM 3.7 mmol/L (3.5-4.5)
== END 2023-10-20 10:23 | disposition home or self-care (01) ==
LOC: LAB 10:22
PROVIDERS: ATTEND Orthopaedic Surgery Orthopaedic Surgery of the Spine
DX: Z01.812 Encounter for preprocedural laboratory examination (principal)
CPT/HCPCS: 36415; 80048; 85025

== ENCOUNTER 2024-02-18 10:21 | Outpatient (CLI) | payer MEDICARE, MEDICAID ==
[2024-02-18 10:30] LABS: BASOPHILS # (AUTO) 0.1 10^3/uL (0.0-0.1); BASOPHILS % (AUTO) 0.8 %; EOSINOPHILS # (AUTO) 0.4 10^3/uL (0.0-0.7); EOSINOPHILS % (AUTO) 4.5 %; HCT - HEMATOCRIT 42.3 % (37.0-47.0); HGB - HEMOGLOBIN 13.2 g/dL (12.0-16.0); LYMPHOCYTES # (AUTO) 2.7 10^3/uL (1.5-3.5); LYMPHOCYTES % (AUTO) 27.5 %; MEAN CORPUSCULAR HEMOGLOBIN 26.2 pg (27.0-31.0); MEAN CORPUSCULAR HGB CONC 31.2 g/dL (32.0-36.0); MEAN CORPUSCULAR VOLUME 83.9 fL (81.0-99.0); MEAN PLATELET VOLUME 9.2 fL (7.9-10.8); MONOCYTES # (AUTO) 0.6 10^3/uL (0.0-1.0); MONOCYTES % (AUTO) 6.2 %; NEUTROPHILS % (AUTO) 60.6 %; PLT - PLATELET COUNT 287 10^3/uL (130-450); RED BLOOD COUNT 5.04 10^6/uL (4.20-5.40); RED CELL DISTRIBUTION WIDTH 17.8 % (12.0-15.0); WHITE BLOOD COUNT 9.9 x10^3/uL (4.8-10.8)
== END 2024-02-18 10:22 | disposition home or self-care (01) ==
LOC: LAB 10:21
PROVIDERS: ATTEND Orthopaedic Surgery Orthopaedic Surgery of the Spine
DX: Z01.812 Encounter for preprocedural laboratory examination (principal)
CPT/HCPCS: 36415; 85025

== ENCOUNTER 2024-02-20 08:00 | Outpatient (CLI) | payer MEDICAID, MEDICARE | END 2024-02-20 23:59 | disposition home or self-care (01) | LOC: LAB.N 08:00 | PROVIDERS: ATTEND Registered Nurse | DX: R82.79 Other abnormal findings on microbiological examination of urine (principal); N12 Tubulo-interstitial nephritis, not specified as acute or chronic | CPT/HCPCS: 87086 ==

== ENCOUNTER 2024-04-11 08:00 | Outpatient (CLI) | payer MEDICARE, MEDICAID ==
--- NOTE | 2024-04-11 11:10 | XRAY Report ---
PROCEDURE: Chest 2V INDICATIONS: CHEST PAIN TECHNIQUE: 2 views of the chest were acquired. COMPARISON: 06/06/2019. FINDINGS: Surgical changes and devices: Remote proximal left humerus ORIF. Lungs and pleura: No pleural effusions or pneumothorax. Lungs are clear. Mediastinum: Mediastinal contours appear normal. Heart size is normal. Bones and chest wall: No suspicious bony lesions. Overlying soft tissues appear unremarkable. IMPRESSION: No acute cardiopulmonary process. Reviewed by: Calvin Clark MD on 04/11/2024 11:09 AM PDT Approved by: Calvin Clark MD on 04/11/2024 11:09 AM PDT Station ID: [id number]
== END 2024-04-11 23:59 | disposition home or self-care (01) ==
LOC: DI.S 08:00
PROVIDERS: ATTEND Physician Assistant Medical
DX: R07.9 Chest pain, unspecified (principal)